=== PATIENT | female | born 1980 | race Caucasian/White ===

== ENCOUNTER 2018-02-13 13:27 | Emergency (ER) | payer MEDICAID ==
[~2018-02-13] VITALS: Ht 167.6 cm; Wt 127.9 kg
[~2018-02-13 13:27] MED LIST: DOCU100C37 PO; FOLI1TAB24 PO; HYDR-3729 PO; HYDR250V7 IM; IBUP-1780 PO; IRON1TAB95 PO; METR500T PO; OXYC-465 PO; PREN1TAB79 PO
--- NOTE | 2018-02-13 13:52 | ED GU-Female ---
General Stated Complaint: ABD PAIN/CRAMPING/16 WEEKS PG/SPOTTING Source: patient Exam Limitations: no limitations History of Present Illness Date Seen by Provider: Feb 13, 2018 Time Seen by Provider: 13:40 Initial Comments with 2 miscarriages and one set of twins presents at 15 weeks and 6 days by [facility]. Unknown LMP. 2 prior C-sections. Patient presents to ER by private conveyance with her family members and chief complaint that last night she started noticing some spotting as well as having some low abdominal cramping pain in the suprapubic region. No dysuria or discharge. She has had morning nausea throughout her and this has not changed. She denies any nausea presently. No fevers or chills, vomiting, or constipation. She however started having some loose stools yesterday. She's not had any trauma. Allergies and Home Medications Allergies Coded Allergies: latex (Verified Allergy, Unknown, 12/19/15) Swelling penicillin G (Verified Allergy, Unknown, 07/04/06) Home Medications Vit W-Ca,Fe,FA(<1 mg) 1 Each Tablet, 1 EACH PO DAILY, (Reported) Patient Home Medication List Home Medication List Reviewed: Yes Review of Systems Constitutional: No chills, No diaphoresis EENTM: No ear pain, No blurred vision Respiratory: No cough, No short of breath Cardiovascular: No chest pain, No palpitations Gastrointestinal: abdominal pain; No constipation; diarrhea, nausea; No vomiting Genitourinary: denies burning, denies discharge, denies dysuria : Yes Expected Date of Delivery: Aug 01, 2018 Past Zodtanw-Mjvtmz-Knxxoa Hx Patient Social History Alcohol Use: Denies Use Recreational Drug Use: No Smoking Status: Current Everyday Smoker Type Used: Cigarettes (09/27) Recent Foreign Travel: No Contact w/Someone Who Travel: No Immunizations Up To Date Tetanus Booster (TDap): Unknown PED Vaccines UTD: Yes Past Medical History Section Reproductive Disorders: No Female Reproductive Disorders: Denies Sexually Transmitted Disease: Yes HIV/AIDS: No Family Medical History Alcoholism grandparents Alzheimer's disease grandparents Cardiovascular disease 19 FATHER Completed stroke 19 MOTHER Diabetes mellitus 19 MOTHER grandparents Drug abuse grandparents FH: cancer grandparents (breast, bladder) Hypertension 19 FATHER 19 MOTHER grandparents Myocardial infarction 19 FATHER 19 MOTHER grandparents Physical Exam Vital Signs Vital Signs - First Documented 02/13/18 13:35 Temp 97.1 Pulse 72 Resp 18 B/P (MAP) 129/54 (79) Pulse Ox 99 Capillary Refill : Height, Weight, BMI Height: 5', 6.00" Weight: 282lbs 0.0oz, [id number] Method: ,45.5BMI General Appearance: WD/WN, no apparent distress HEENT: PERRL/EOMI, pharynx normal Neck: non-tender, full range of motion, supple, normal inspection Cardiovascular: normal peripheral pulses, regular rate, rhythm Respiratory: chest non-tender, lungs clear, normal breath sounds, no respiratory distress, no accessory muscle use Gastrointestinal: normal bowel sounds, soft, no organomegaly, other (mild tenderness in the right lower quadrant, left lower quadrant and suprapubic region. Gravid approximately 16 cm fundal height.) Extremities: no pedal edema, normal capillary refill Neurologic/Psychiatric: alert, normal mood/affect, oriented x 3 Skin: normal color, warm/dry Progress/Results/Core Measures Suspected Sepsis SIRS Temperature: Pulse: Respiratory Rate: Laboratory Tests 02/13/18 14:13: White Blood Count 8.7 Blood Pressure / Mean: Laboratory Tests 02/13/18 14:13: Creatinine 0.65, Platelet Count 306, Total Bilirubin 0.2 Results/Orders Lab Results Laboratory Tests Test 02/13/18 14:13 02/13/18 14:40 Range/Units White Blood Count 8.7 4.3-11.0 10^3/uL Red Blood Count 3.87 L 4.35-5.85 10^6/uL Hemoglobin 11.4 L 11.5-16.0 G/DL Hematocrit 33 L 35-52 % Mean Corpuscular Volume 86 80-99 FL Mean Corpuscular Hemoglobin 29 25-34 PG Mean Corpuscular Hemoglobin Concent 34 32-36 G/DL Red Cell Distribution Width 14.1 10.0-14.5 % Platelet Count 306 130-400 10^3/uL Mean Platelet Volume 9.3 7.4-10.4 FL Neutrophils (%) (Auto) 68 42-75 % Lymphocytes (%) (Auto) 26 12-44 % Monocytes (%) (Auto) 5 0-12 % Eosinophils (%) (Auto) 1 0-10 % Basophils (%) (Auto) 0 0-10 % Neutrophils # (Auto) 5.9 1.8-7.8 X 10^3 Lymphocytes # (Auto) 2.3 1.0-4.0 X 10^3 Monocytes # (Auto) 0.4 0.0-1.0 X 10^3 Eosinophils # (Auto) 0.1 0.0-0.3 10^3/uL Basophils # (Auto) 0.0 0.0-0.1 10^3/uL Sodium Level 137 135-145 MMOL/L Potassium Level 3.7 3.6-5.0 MMOL/L Chloride Level 108 H 98-107 MMOL/L Carbon Dioxide Level 21 21-32 MMOL/L Anion Gap 8 5-14 MMOL/L Blood Urea Nitrogen 7 7-18 MG/DL Creatinine 0.65 0.60-1.30 MG/DL Estimat Glomerular Filtration Rate > 60 BUN/Creatinine Ratio 11 Glucose Level 94 70-105 MG/DL Calcium Level 9.1 8.5-10.1 MG/DL Total Bilirubin 0.2 0.1-1.0 MG/DL Aspartate Amino Transf (AST/SGOT) 12 5-34 U/L Alanine Aminotransferase (ALT/SGPT) 15 0-55 U/L Alkaline Phosphatase 48 40-136 U/L Total Protein 6.8 6.4-8.2 GM/DL Albumin 3.7 3.2-4.5 GM/DL Human Chorionic Gonadotropin, Quant [id number] H <5 MIU/ML Urine Color YELLOW Urine Clarity CLEAR Urine pH 6 5-9 Urine Specific Stephens 1.020 1.016-1.022 Urine Protein 1+ H NEGATIVE Urine Glucose (UA) NEGATIVE NEGATIVE Urine Ketones NEGATIVE NEGATIVE Urine Nitrite NEGATIVE NEGATIVE Urine Bilirubin NEGATIVE NEGATIVE Urine Urobilinogen NORMAL NORMAL MG/DL Urine Leukocyte Esterase 3+ H NEGATIVE Urine RBC (Auto) 1+ H NEGATIVE Urine RBC 0-2 /HPF Urine WBC 2-5 /HPF Urine Squamous Epithelial Cells 0-2 /HPF Urine Crystals NONE /LPF Urine Bacteria FEW H /HPF Urine Casts NONE /LPF Urine Mucus NEGATIVE /LPF Urine Culture Indicated NO Urine Opiates Screen NEGATIVE NEGATIVE Urine Oxycodone Screen NEGATIVE NEGATIVE Urine Methadone Screen NEGATIVE NEGATIVE Urine Propoxyphene Screen NEGATIVE NEGATIVE Urine Barbiturates Screen NEGATIVE NEGATIVE Ur Tricyclic Antidepressants Screen NEGATIVE NEGATIVE Urine Phencyclidine Screen NEGATIVE NEGATIVE Urine Amphetamines Screen NEGATIVE NEGATIVE Urine Methamphetamines Screen NEGATIVE NEGATIVE Urine Benzodiazepines Screen NEGATIVE NEGATIVE Urine Cocaine Screen NEGATIVE NEGATIVE Urine Cannabinoids Screen POSITIVE H NEGATIVE My Orders Orders - FABI MAYA Heart Tones (02/13/18 13:44) Cbc With Automated Diff (02/13/18 13:44) Comprehensive Metabolic Panel (02/13/18 13:44) Drug Screen Stat (Urine) (02/13/18 13:44) Hcg,Quantitative (02/13/18 13:44) Ua Culture If Indicated (02/13/18 13:44) [place] Limited [id number] (02/13/18 13:44) Vital Signs/I&O 02/13/18 13:35 Temp 97.1 Pulse 72 Resp 18 B/P (MAP) 129/54 (79) Pulse Ox 99 Capillary Refill : Progress Note : Time: 13:53 Progress Note Patient's having some bleeding in second trimester. We'll going to obtain an ultrasound looking for abruption etc. Attempt to get heart tones. We will get some basic labs and a qualitative hCG. 1500: 149 Diagnostic Imaging Diagonstic Imaging: Ultrasound Plain Films/CT/US/NM/MRI: abdomen (TV US) Comments VIA [facility]. [place], [place] NAME: ZAK DREW [facility] REC#: [id number] PT STATUS: REG ER : 1980 PHYSICIAN: FABI MAYA MD ADMIT DATE: 02/13/18/ER Draft Date of Exam:02/13/18 [place] LIMITED [id number] INDICATION: Pelvic cramping and spotting. FINDINGS: There is a single live intrauterine . Fetus is in a transverse presentation. Placenta appears to be developing anteriorly. heart rate is recorded at 149 beats per minute. No definite retroplacental fluid collection or evidence of abruption is seen. IMPRESSION: Limited obstetrical ultrasound. No complicating feature is detected. Dictated on workstation # [id number] Dict: 02/13/18 1515 Trans: 02/13/18 1521 [facility] [id number] Interpreted by: CHEYENNE WHITLOCK MD Electronically signed by: Reviewed: Reviewed by Me Departure Impression Primary Impression: Spotting affecting in second trimester Additional Impression: Threatened in second trimester Disposition: 01 HOME, SELF-CARE Condition: Stable Departure-Patient Inst. Decision time for Depature: 15:40 Referrals: FREDDY MCLEOD DO (PCP/Family) Primary Care Physician Patient Instructions: Threatened Miscarriage (DC) Add. 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 Work/School Note: Work Release Form Date Seen in the Emergency Department: Feb 13, 2018 Return to Work: Feb 14, 2018 Restrictions: No Restrictions Copy Copies To 1: FREDDY MCLEOD TITUS J Feb 13, 2018 13:52
[2018-02-13 14:40] LABS: BASOPHILS % (AUTO) 0 % (0-10); EOSINOPHILS # (AUTO) 0.1 10^3/uL (0.0-0.3); EOSINOPHILS % (AUTO) 1 % (0-10); HEMATOCRIT 33 % (35-52); HEMOGLOBIN 11.4 G/DL (11.5-16.0); LYMPHOCYTES # (AUTO) 2.3 X 10^3 (1.0-4.0); LYMPHOCYTES % (AUTO) 26 % (12-44); MEAN CORPUSCULAR HEMOGLOBIN 29 PG (25-34); MEAN CORPUSCULAR HGB CONC 34 G/DL (32-36); MEAN CORPUSCULAR VOLUME 86 FL (80-99); MEAN PLATELET VOLUME 9.3 FL (7.4-10.4); MONOCYTES # (AUTO) 0.4 X 10^3 (0.0-1.0); MONOCYTES % (AUTO) 5 % (0-12); NEUTROPHILS # (AUTO) 5.9 X 10^3 (1.8-7.8); NEUTROPHILS % (AUTO) 68 % (42-75); PLATELET COUNT 306 10^3/uL (130-400); RED BLOOD COUNT 3.87 10^6/uL (4.35-5.85); RED CELL DISTRIBUTION WIDTH 14.1 % (10.0-14.5); WHITE BLOOD COUNT 8.7 10^3/uL (4.3-11.0)
[2018-02-13 14:49] LABS: BILIRUBIN,URINE NEGATIVE (NEGATIVE); CLARITY,URINE CLEAR; COLOR,URINE YELLOW; GLUCOSE, URINE (UA) NEGATIVE (NEGATIVE); KETONES,URINE NEGATIVE (NEGATIVE); LEUKOCYTE ESTERASE ,URINE 3+ (NEGATIVE); NITRITE,URINE NEGATIVE (NEGATIVE); PH,URINE 6 (5-9); PROTEIN,URINE 1+ (NEGATIVE); UROBILINOGEN,URINE NORMAL (NORMAL)
[2018-02-13 14:57] LABS: BACTERIA,URINE FEW /HPF; RBC,URINE 0-2 /HPF; SQUAMOUS EPITHELIAL CELL,UR 0-2 /HPF
[2018-02-13 14:58] LABS: ALANINE AMINOTRANSFERASE 15 U/L (0-55); ALBUMIN 3.7 GM/DL (3.2-4.5); ALKALINE PHOSPHATASE 48 U/L (40-136); BILIRUBIN,TOTAL 0.2 MG/DL (0.1-1.0); BUN/CREATININE RATIO 11; CALCIUM 9.1 MG/DL (8.5-10.1); CARBON DIOXIDE 21 MMOL/L (21-32); CHLORIDE 108 MMOL/L (98-107); CREATININE SERUM 0.65 MG/DL (0.60-1.30); GFR ESTIMATED > 60; GLUCOSE 94 MG/DL (70-105); POTASSIUM 3.7 MMOL/L (3.6-5.0); SODIUM 137 MMOL/L (135-145); TOTAL PROTEIN 6.8 GM/DL (6.4-8.2)
[2018-02-13 15:02] LABS: AMPHETAMINE SCREEN, URINE NEGATIVE (NEGATIVE); BARBITURATE SCREEN URINE NEGATIVE (NEGATIVE); BENZODIAZEPINES SCREEN URINE NEGATIVE (NEGATIVE); CANNABINOID SCREEN, URINE POSITIVE (NEGATIVE); COCAINE SCREEN URINE NEGATIVE (NEGATIVE); METHADONE STAT NEGATIVE (NEGATIVE); METHAMPHETAMINE SCREEN URINE S NEGATIVE (NEGATIVE); OPIATE SCREEN URINE NEGATIVE (NEGATIVE); OXYCODONE STAT NEGATIVE (NEGATIVE); PROPOXYPHENE STAT NEGATIVE (NEGATIVE); TRICYCLIC ANTIDEPRESSANTS SCRE NEGATIVE (NEGATIVE)
--- NOTE | 2018-02-13 15:21 | Diagnostic Imaging Report ---
INDICATION: Pelvic cramping and spotting. FINDINGS: There is a single live intrauterine . Fetus is in a transverse presentation. Placenta appears to be developing anteriorly. heart rate is recorded at 149 beats per minute. No definite retroplacental fluid collection or evidence of abruption is seen. IMPRESSION: Limited obstetrical ultrasound. No complicating feature is detected. Dictated by: Dictated on workstation # [id number]
[2018-02-13 15:56] VITALS: BP 129/54
== END 2018-02-13 15:50 | disposition home or self-care (01) ==
LOC: EDUNIT# 13:27 → ER 13:29
DX: O20.0 Threatened abortion (principal); O26.852 Spotting complicating pregnancy, second trimester; Z3A.15 15 weeks gestation of pregnancy; Z91.040 Latex allergy status; Z88.0 Allergy status to penicillin; O99.332 Smoking (tobacco) complicating pregnancy, second trimester; F17.210 Nicotine dependence, cigarettes, uncomplicated; Z87.59 Personal history of other complications of pregnancy, childbirth and the puerperium
CPT/HCPCS: 36415; 76815; 80053; 80306; 81000; 84702; 85025

== ENCOUNTER → 2018-03-20 | Outpatient (CLI) | payer MEDICAID ==
--- NOTE | 2018-03-20 14:50 | Diagnostic Imaging Report ---
INDICATION: survey. TECHNIQUE: Multiple real-time grayscale images were obtained over the gravid uterus. COMPARISON: 02/13/2018. FINDINGS: There is a single live fetus in a breech presentation. heart rate was recorded at 153 beats per minute. Amniotic fluid volume is within normal limits. survey demonstrates kidneys, bladder and stomach to be unremarkable. brain is limited in evaluation due to position. Four-chamber heart view is not well visualized. In addition, spine and cord insertion were not well visualized. There is a three-vessel cord noted. Biometrical measurements are as follows: Biparietal 5.09 cm, age 21 weeks 3 days. Head circumference 18.59 cm, age 21 weeks 0 days. Abdominal circumference 14.62 cm, age 20 weeks 0 days. Femur length 3.34 cm, age 20 weeks 4 days. Sonographic estimate age: 20 weeks 6 days. Sonographic estimated date of delivery: 08/01/2018. Estimated Weight: 344 gm (+/- 50 gm). LMP percentile: 18%. heart rate: 153 beats per minute. number: 1 of 1. IMPRESSION: Single live IUP 20 weeks 6 days gestational age with estimated date of confinement sonographically of 08/01/2018. No complicating features are seen. The survey is somewhat limited, described above and followup could be performed. Dictated by: Dictated on workstation # [id number]
== END ==
LOC: RAD 13:13
PROVIDERS: ATTEND Obstetrics & Gynecology
DX: Z36.89 Encounter for other specified antenatal screening (principal); Z3A.20 20 weeks gestation of pregnancy
CPT/HCPCS: 76805

== ENCOUNTER 2018-07-20 13:38 | Outpatient (CLI) | payer MEDICAID ==
[~2018-07-20] VITALS: Ht 167.6 cm; Wt 132.9 kg
== END 2018-07-20 14:00 | disposition home or self-care (01) ==
LOC: PREOP 13:38
PROVIDERS: ATTEND Obstetrics & Gynecology
DX: Z01.818 Encounter for other preprocedural examination (principal)
CPT/HCPCS: 87081

== ENCOUNTER 2018-07-25 07:30 | Inpatient (IN) | payer MEDICAID ==
[~2018-07-25] VITALS: Ht 167.6 cm; Wt 132.0 kg
[2018-07-25 10:24] VITALS: BP 137/67
[2018-07-25] MEDS ORDERED: FAMOTIDINE 20MG/2ML IV (PEPCID) IV ONE (10:30)
[2018-07-25] MEDS ORDERED: CITRIC ACID/SOB CIT (BICITRA) 30 ML UDC PO ONE (10:30)
[2018-07-25] MEDS ORDERED: ceFAZolin 2 GM IV Premixed 50 ML IV ONE (10:30)
[2018-07-25] MEDS ORDERED: METOCLOPRAMIDE INJ 10 MG/2 ML (REGLAN) IV ONE (10:30)
[2018-07-25] MEDS: LACTATED RINGERS 1,000 ML IV SCH ×2 (10:45→12:00)
[2018-07-25 11:13] LABS: BASOPHILS % (AUTO) 0 % (0-10); EOSINOPHILS # (AUTO) 0.1 10^3/uL (0.0-0.3); EOSINOPHILS % (AUTO) 1 % (0-10); HEMATOCRIT 33 % (35-52); HEMOGLOBIN 10.9 G/DL (11.5-16.0); LYMPHOCYTES # (AUTO) 1.8 X 10^3 (1.0-4.0); LYMPHOCYTES % (AUTO) 24 % (12-44); MEAN CORPUSCULAR HEMOGLOBIN 29 PG (25-34); MEAN CORPUSCULAR HGB CONC 33 G/DL (32-36); MEAN CORPUSCULAR VOLUME 88 FL (80-99); MONOCYTES # (AUTO) 0.4 X 10^3 (0.0-1.0); MONOCYTES % (AUTO) 5 % (0-12); NEUTROPHILS # (AUTO) 5.5 X 10^3 (1.8-7.8); NEUTROPHILS % (AUTO) 70 % (42-75); PLATELET COUNT 345 10^3/uL (130-400); RED BLOOD COUNT 3.74 10^6/uL (4.35-5.85); RED CELL DISTRIBUTION WIDTH 14.1 % (10.0-14.5); WHITE BLOOD COUNT 7.8 10^3/uL (4.3-11.0)
[2018-07-25 11:17] VITALS: BP 140/72
--- NOTE | 2018-07-25 11:33 | History & Physical-OB ---
OB - Chief Complaint & HPI Date/Time Date of Admission: Date of Admission: Jul 25, 2018 at 10:14 am Date seen by a Provider: Jul 25, 2018 Time Seen by a Provider: 12:05 Chief Complaint/History Hx : 5 Hx Para: 3 Expected Date of Delivery: Aug 01, 2018 Gestational Age in Weeks: 39 Gestational Age in Days: 0 Indication for : desires repeat Admission Nurse Assessment Rev: Yes History of Labs A pos Antibody neg RNI RPR NR HBsAg NR HIV NR GC neg GBS pos Allergies and Home Medications Allergies Coded Allergies: latex (Verified Allergy, Unknown, 12/19/15) Swelling penicillin G (Verified Allergy, Unknown, Pt has received Ancef w/o issue, 07/25/18) Home Medications Vit W-Ca,Fe,FA(<1 mg) 1 Each Tablet, 1 EACH PO DAILY, (Reported) Patient Home Medication List Home Medication List Reviewed: Yes OB - History Hx of Present Care: Yes Ultrasounds: Normal mid trimester US Obstetrical Complications: None Medical Complications: None Obstetrical History Hx Termination: Yes Hx Multiple Gestation: Yes Hx Stillbirth: Yes Hx Complication: No Hx Induced Hypertens: No Hx Maternal Gestational Diabet: No Delivery History Hx Dystocia: No Hx Large For Gestational Age I: No Hx Small for Gestational Age I: No Hx Section: Yes Hx Vaginal Delivery Post C-Sec: No Hx Blood Disorders: No Adverse Rxn to Tranfusion: No Patient Past Medical History n/a Social History/Family History HIV/AIDS: No Recent Infectious Disease Expo: No Sexually Transmitted Disease: Yes Alcohol Use: Denies Use Recreational Drug Use: No Immunizations Hepatitis A: No Hepatitis B: No Tetanus Booster (TDap): Unknown Date of Influenza Vaccine: Apr 20, 2018 OB - Admission Exam Physical Exam Vitals: Vital Signs 07/25/18 07/25/18 10:24 11:17 Temp 97.7 Pulse 85 Resp 18 B/P (MAP) 140/72 (94) Pulse Ox 98 O2 Delivery Room Air HEENT: NCAT Heart: Rhythm Normal Lungs: Clear Abdomen: Gravid Extremities: Normal Reflexes: Normal Heart Rate: 130's Accelerations: Accelerations Present Decelerations: No Decelerations Short Term Variability: Present Longterm Variability: Average (6-25) Contractions on Admission: >10 Minutes Apart Intensity: Mild Labs Laboratory Tests Test 07/25/18 10:55 Range/Units White Blood Count 7.8 4.3-11.0 10^3/uL Red Blood Count 3.74 L 4.35-5.85 10^6/uL Hemoglobin 10.9 L 11.5-16.0 G/DL Hematocrit 33 L 35-52 % Mean Corpuscular Volume 88 80-99 FL Mean Corpuscular Hemoglobin 29 25-34 PG Mean Corpuscular Hemoglobin Concent 33 32-36 G/DL Red Cell Distribution Width 14.1 10.0-14.5 % Platelet Count 345 130-400 10^3/uL Mean Platelet Volume 9.0 7.4-10.4 FL Neutrophils (%) (Auto) 70 42-75 % Lymphocytes (%) (Auto) 24 12-44 % Monocytes (%) (Auto) 5 0-12 % Eosinophils (%) (Auto) 1 0-10 % Basophils (%) (Auto) 0 0-10 % Neutrophils # (Auto) 5.5 1.8-7.8 X 10^3 Lymphocytes # (Auto) 1.8 1.0-4.0 X 10^3 Monocytes # (Auto) 0.4 0.0-1.0 X 10^3 Eosinophils # (Auto) 0.1 0.0-0.3 10^3/uL Basophils # (Auto) 0.0 0.0-0.1 10^3/uL OB - Assessment/Plan/Diagnosis Assessment Assessment: section Admission Dx 37 yo @ 39 weeks Previous GBS pos Admission Status: Inpatient Order (span 2 midnights) Reason for Inpatient Admission: Repeat Plan Plan: Section FREDDY MCLEOD DO Jul 25, 2018 11:33 am
[2018-07-25] MEDS ORDERED: fentaNYL INJECTION 100 MCG/2 ML AMP ONE (11:45)
[2018-07-25] MEDS ORDERED: BUPIVACAINE SPINAL 0.75% (SENSORCAINE) 2 ML AMP ONE (11:45)
[2018-07-25] MEDS ORDERED: ONDANSETRON 4 MG/2 ML (SDV) Z0FRAN ONE (12:41)
[2018-07-25] MEDS ORDERED: NEO/POLY/BAC (NEOSPORIN) OINT 15 GM TUBE ONE (13:00)
[2018-07-25] MEDS ORDERED: OXYTOCIN/NORMAL SALINE 500 ML IV SCH (13:07)
--- NOTE | 2018-07-25 13:10 | Discharge Inst-Women's Service ---
Discharge Inst-Women's Serv Depart Medication/Instructions New, Converted or Re-Newed RX: RX on Chart Consults/Follow Up Additional Follow Up: Yes Orders/Referrals Dr. Gerard in 7-10 days and in 6 weeks Activity Activity: Activity as Tolerated Driving Instructions: No Driving for 1 Week NO SMOKING: NO SMOKING Nothing Inside Vagina: No Douching, No [place], No Tampons Diet Discharge Diet: No Restrictions Symptoms to Report to : Bleeding Excessive, Pain Increased, Fever Over 101 Degrees F, Vaginal Bleeding Increase, Questions/Concerns For Any Problems or Questions: Contact Your Physician Skin/Wound Care Infection Signs and Symptoms: Increased Redness, Foul Odor of Wound, Increased Drainage, Skin Itchy or Has a Rash, Increased Swelling, Temperature Above 101 F Operative Area Clean and Dry: Keep Incision Clean/Dry Stitches/Claudia/Dermabond: Dermabond, Care of Stitches Bathing Instructions: FREDDY Shukla DO Jul 25, 2018 1:10 pm
[2018-07-25] MEDS ORDERED: MEASLES,MUMPS,RUBELLA 1 EA INJ SC SCH (13:15)
[2018-07-25] MEDS ORDERED: ONDANSETRON 4 MG/2 ML (SDV) Z0FRAN IVP PRN (13:15)
[2018-07-25] MEDS ORDERED: HYDROmorphone 2 MG/ML VIAL (DILAUDID) IV PRN (13:15)
[2018-07-25] MEDS ORDERED: TETANUS,DIPTH,PERTUSS P/F (BOOSTRIX) 0.5 ML VIAL IM SCH (13:15)
[2018-07-25 15:00] VITALS: BP 100/66
[2018-07-25 16:30] VITALS: BP 123/73
[2018-07-25] MEDS: KETOROLAC 30 MG/ML VIAL IVP SCH ×2 (16:33→21:58)
[2018-07-25] MEDS: HYDROcodone/APAP 5 MG/325 MG (LORTAB) TAB PO PRN (16:43)
[2018-07-25 20:00] VITALS: BP 123/64
[2018-07-25] MEDS: DOCUSATE SODIUM 100 MG (COLACE) CAP PO SCH (21:59)
[2018-07-26 00:07] VITALS: BP 116/65
[2018-07-26] MEDS: HYDROcodone/APAP 5 MG/325 MG (LORTAB) TAB PO PRN ×4 (00:07→22:02)
[2018-07-26 04:00] VITALS: BP 119/72
[2018-07-26] MEDS: KETOROLAC 30 MG/ML VIAL IVP SCH ×2 (04:00→09:51)
[2018-07-26 05:39] LABS: BASOPHILS % (AUTO) 0 % (0-10); EOSINOPHILS # (AUTO) 0.1 10^3/uL (0.0-0.3); EOSINOPHILS % (AUTO) 1 % (0-10); HEMATOCRIT 30 % (35-52); HEMOGLOBIN 9.8 G/DL (11.5-16.0); LYMPHOCYTES # (AUTO) 2.2 X 10^3 (1.0-4.0); LYMPHOCYTES % (AUTO) 21 % (12-44); MEAN CORPUSCULAR HEMOGLOBIN 30 PG (25-34); MEAN CORPUSCULAR HGB CONC 33 G/DL (32-36); MEAN CORPUSCULAR VOLUME 90 FL (80-99); MEAN PLATELET VOLUME 9.1 FL (7.4-10.4); MONOCYTES # (AUTO) 0.7 X 10^3 (0.0-1.0); MONOCYTES % (AUTO) 6 % (0-12); NEUTROPHILS # (AUTO) 7.8 X 10^3 (1.8-7.8); NEUTROPHILS % (AUTO) 72 % (42-75); PLATELET COUNT 295 10^3/uL (130-400); RED BLOOD COUNT 3.32 10^6/uL (4.35-5.85); RED CELL DISTRIBUTION WIDTH 13.9 % (10.0-14.5); WHITE BLOOD COUNT 10.8 10^3/uL (4.3-11.0)
[2018-07-26] MEDS ORDERED: ACHD5005 PO (08:33)
[2018-07-26] MEDS ORDERED: DOCU100C37 PO (08:33)
[2018-07-26] MEDS ORDERED: IBUP-844 PO (08:33)
[2018-07-26 09:45] VITALS: BP 117/73
[2018-07-26] MEDS: DOCUSATE SODIUM 100 MG (COLACE) CAP PO SCH ×2 (09:52→22:03)
--- NOTE | 2018-07-26 09:56 | OPERATIVE REPORT ---
DATE OF SERVICE: PREOPERATIVE DIAGNOSES: 1. A 37-year-old G5, P3 at 39 weeks gestation. 2. Previous section x 2. 3. Family history of ovarian cancer. 4. BMI greater than 40. POSTOPERATIVE DIAGNOSES: 1. A 37-year-old G5, P3 at 39 weeks gestation. 2. Previous section x 2. 3. Family history of ovarian cancer. 4. BMI greater than 40. PROCEDURE PERFORMED: Repeat low transverse section with bilateral risk reducing salpingectomy. SURGEON: Josiah Mcleod DO. ANESTHESIA: Spinal. ESTIMATED BLOOD LOSS: 300 mL. URINE OUTPUT: 300 mL clear at the end of the procedure. FLUIDS: 1200 mL Lactated ringer solution. FINDINGS: A live female infant weighing 7 pounds 3 ounces, Apgars 9 and 9. Grossly normal appearing uterus, bilateral fallopian tubes and ovaries with extensive adhesions of the pelvic peritoneum as well as adhesions of the fascia to the rectus muscle. SPECIMEN SENT: Placenta. INDICATIONS FOR PROCEDURE: This 37-year-old female is a patient that had sought care in my office and had really no complications throughout the other than extensive weight gain, which was counseled extensively on diet. The patient progressed throughout the without difficulty. Otherwise, we discussed risk reducing salpingectomy as the patient finished with her family and done with childbearing and has a family history of ovarian malignancy. Risk of was again reviewed with the patient, which she was familiar with from previous surgeries. All of her questions were answered. We discussed the salpingectomy and no further childbearing without fertility intervention would be possible in the future and the patient understands this as well. Consent was obtained in the preoperative area. The patient was taken to the operating room. OPERATIVE REPORT IN DETAIL: Once in the operating room, spinal anesthesia was found to be adequate. She was placed in a supine position with a leftward tilt, prepped and draped in normal sterile fashion. A timeout was performed and anesthesia was tested. I then proceeded to make a Pfannenstiel skin incision through the previously existing scar using a knife and carried it down to the underlying fascia using Bovie cautery. Fascial incision was extended laterally using Bovie cautery. The superior aspect of the fascial incision was then grasped with Rafa clamps, tented up and dissected off the underlying rectus muscle. The inferior edge of the fascial incision was then grasped with Rafa clamps, tented up and dissected off the underlying rectus muscles. The rectus muscle was then dissected down the midline using Metzenbaum scissors as well as the peritoneum, which was taken down in separate layers using Metzenbaum scissors. Care was taken to stay away from the bladder due to the dense adhesions from previous surgery. I then placed an Eleno ring retractor, went into the peritoneal incision, which offered excellent lateral sidewall retraction. I then proceeded with making a low transverse incision to the vesicouterine peritoneum of the lower uterine segment and bluntly dissecting this off of the lower uterine segment, creating a bladder flap. I then proceeded with my myotomy until membranes are visualized, at which point I extended the uterine incision laterally and superiorly using bandage scissors. Clear fluid was noted at the time of rupture. The was found in the vertex presentation. With gentle fundal pressure, 's head was elevated up to the incision and delivered through the incision where the nares and oropharynx were then bulb suctioned. Anterior and posterior shoulders were delivered. The was then brought to the operative field with the cords doubly clamped and cut and was handed off to waiting nurses in attendance. Cord blood was collected. Three-vessel cord was intact. Placenta was delivered spontaneously thereafter. IV Pitocin was initiated facilitate uterine contraction. Uterine fundus became firmer with bimanual massage. The uterus was then exteriorized and cleared of all endometrial clots and debris. I then proceeded with closing the uterine incision using 0 Vicryl suture in a running locked fashion. A second layer of imbricating 0 Monocryl was placed. Excellent hemostasis was noted after doing this. I then placed the uterus in a flexion position allowing me to address the fallopian tubes, which I performed the following dissection bilaterally using a LigaSure device. Starting at the proximal isthmic portion, I bipolar cauterized and transected using the LigaSure to take this down the mesosalpinx to its distal ampullary connection spot amputating the fallopian tube from its connection and blood supply. Once this was done bilaterally, there was no active bleeding noted from any of my dissection planes. I placed the uterus back within the pelvis and copiously irrigated the pelvis using normal saline. There was no active bleeding noted from any of my dissection planes. We then placed Interceed antiadhesive over my low transverse incision and also placed a run of Surgicel along the margin of the lower uterine segment due to small amount of oozing that was noted likely from previous scar tissue being taken down. I then take the Eleno ring retractor out of the peritoneal incision and closed the rectus muscles using 3-0 Vicryl suture in an interrupted fashion. The fascia was reapproximated using 0 Vicryl suture in a running fashion. Subcutaneous tissue was reapproximated using 3-0 plain in an interrupted subcutaneous stitch and the skin was reapproximated using 4-0 Monocryl running subcuticular. Dermabond was applied to the incision. A sterile dressing was adhesed with white tape. The patient tolerated the procedure well and was taken to the recovery area in stable condition with Barone catheter still in place. Lap and sponge counts were correct at the end of the procedure. Instrument counts correct as well. Two grams of Ancef was preoperatively for infection prophylaxis. Job ID: [id number] DocumentID: [id number] Dictated Date: 07/25/2018 13:47:42 Interventional Neuroradiologist Date: 07/26/2018 09:55:59 Dictated By: JOSIAH MCLEOD DO
--- NOTE | 2018-07-26 12:37 | Postpartum Progress Note ---
Note Note Day # 1 Subjective: Patient is without complaints. Ambulating, voiding. Tolerating a regular diet without nausea or vomiting. Normal lochia. Pain is well controlled with oral pain medications. Objective: Vital Sign - Last 24 Hours 07/25/18 07/25/18 07/25/18 07/26/18 15:00 16:30 20:00 00:07 Temp 97.9 98.1 97.7 97.7 Pulse 60 77 81 71 Resp 18 18 18 18 B/P (MAP) 100/66 (77) 123/73 (90) 123/64 (83) 116/65 (82) Pulse Ox 96 98 97 97 O2 Delivery Room Air Room Air Room Air Room Air 07/26/18 07/26/18 04:00 09:45 Temp 97.6 97.5 Pulse 74 66 Resp 18 18 B/P (MAP) 119/72 (88) 117/73 (88) Pulse Ox 98 98 O2 Delivery Room Air Room Air Intake and Output 07/25/18 07/25/18 07/26/18 15:00 23:00 07:00 Intake Total 1050 ml 2740 ml 600 ml Output Total 600 ml 300 ml 375 ml Balance 450 ml 2440 ml 225 ml Physical Exam: General - Alert and oriented, no apparent distress Abdomen - Soft, appropriately tender to palpation, non-distended, fundus firm at umbilicus Extremities - no edema, negative Aaron's bilaterally Incision- c/d/i Assessment: POD 1 RLTCS/ rrs Acute blood loss anemia Plan: Routine care. Encourage breast feeding. Encourage ambulation. Ferrous sulfate supplementation. Plan for discharge tomorrow Vitals - Labs Vital Signs - I&O Vital Signs Date Time Temp Pulse Resp B/P (MAP) Pulse Ox O2 Delivery O2 Flow Rate FiO2 07/26/18 09:45 97.5 66 18 117/73 (88) 98 Room Air 07/26/18 04:00 97.6 74 18 119/72 (88) 98 Room Air 07/26/18 00:07 97.7 71 18 116/65 (82) 97 Room Air 07/25/18 20:00 97.7 81 18 123/64 (83) 97 Room Air 07/25/18 16:30 98.1 77 18 123/73 (90) 98 Room Air 07/25/18 15:00 97.9 60 18 100/66 (77) 96 Room Air I & O 07/26/18 07:00 Intake Total 4390 ml Output Total 1275 ml Balance 3115 ml Labs Laboratory Tests 07/26/18 05:20: White Blood Count 10.8, Red Blood Count 3.32L, Hemoglobin 9.8L, Hematocrit 30L, Mean Corpuscular Volume 90, Mean Corpuscular Hemoglobin 30, Mean Corpuscular Hemoglobin Concent 33, Red Cell Distribution Width 13.9, Platelet Count 295, Mean Platelet Volume 9.1, Neutrophils (%) (Auto) 72, Lymphocytes (%) (Auto) 21, Monocytes (%) (Auto) 6, Eosinophils (%) (Auto) 1, Basophils (%) (Auto) 0, Neutrophils # (Auto) 7.8, Lymphocytes # (Auto) 2.2, Monocytes # (Auto) 0.7, Eosinophils # (Auto) 0.1, Basophils # (Auto) 0.0 FREDDY MCLEOD DO Jul 26, 2018 12:37 pm
[2018-07-26 12:45] VITALS: BP 123/75
[2018-07-26 16:39] VITALS: BP 109/68
[2018-07-26] MEDS: IBUPROFEN 600 MG (MOTRIN) TAB PO SCH ×2 (16:42→22:03)
[2018-07-26 22:00] VITALS: BP 114/76
[2018-07-27] MEDS: HYDROcodone/APAP 5 MG/325 MG (LORTAB) TAB PO PRN ×3 (03:07→16:07)
[2018-07-27 04:00] VITALS: BP 138/77
[2018-07-27] MEDS: IBUPROFEN 600 MG (MOTRIN) TAB PO SCH ×3 (04:03→14:03)
[2018-07-27 08:14] VITALS: BP 125/60
[2018-07-27] MEDS: DOCUSATE SODIUM 100 MG (COLACE) CAP PO SCH (08:18)
--- NOTE | 2018-07-27 08:24 | Postpartum Progress Note ---
Note Note Day # 2 Subjective: Patient is without complaints. Ambulating, voiding. Tolerating a regular diet without nausea or vomiting. Normal lochia. Pain is well controlled with oral pain medications. [ Objective: Vital Sign - Last 24 Hours 07/26/18 07/26/18 07/26/18 07/26/18 09:45 12:45 16:39 22:00 Temp 97.5 97.6 97.5 97.6 Pulse 66 85 84 96 Resp 18 18 18 18 B/P (MAP) 117/73 (88) 123/75 (91) 109/68 (82) 114/76 (89) Pulse Ox 98 98 97 97 O2 Delivery Room Air Room Air Room Air Room Air 07/27/18 04:00 Temp 97.7 Pulse 81 Resp 18 B/P (MAP) 138/77 (97) Pulse Ox 97 O2 Delivery Room Air Intake and Output 07/26/18 07/26/18 07/27/18 15:00 23:00 07:00 Intake Total 2212 ml 500 ml Output Total 1600 ml 500 ml Balance 612 ml 0 ml Physical Exam: General - Alert and oriented, no apparent distress Abdomen - Soft, appropriately tender to palpation, non-distended, fundus firm at umbilicus Extremities - no edema, negative Aaron's bilaterally Incision- c/d/i Assessment: POD 2 RLTCS w/RRS Acute blood loss anemia Plan: Routine care. Encourage breast feeding. Encourage ambulation. Ferrous sulfate supplementation. Plan for discharge today Vitals - Labs Vital Signs - I&O Vital Signs Date Time Temp Pulse Resp B/P (MAP) Pulse Ox O2 Delivery O2 Flow Rate FiO2 07/27/18 04:00 97.7 81 18 138/77 (97) 97 Room Air 07/26/18 22:00 97.6 96 18 114/76 (89) 97 Room Air 07/26/18 16:39 97.5 84 18 109/68 (82) 97 Room Air 07/26/18 12:45 97.6 85 18 123/75 (91) 98 Room Air 07/26/18 09:45 97.5 66 18 117/73 (88) 98 Room Air I & O 07/27/18 07:00 Intake Total 2712 ml Output Total 2100 ml Balance 612 ml FREDDY MCLEOD DO Jul 27, 2018 08:24
[2018-07-27] MEDS: CATHETER FLUSH 10 ML SYR IV SCH ×3 (10:10→11:09)
[2018-07-27] MEDS: LACTATED RINGERS 1,000 ML IV SCH ×2 (11:08→11:10)
[2018-07-27 15:00] VITALS: BP 134/74
--- NOTE | 2018-07-28 15:42 | Physician Query-Final Dx ---
KAI WHITLOCK 07/28/18 1542: Final Diagnosis Give Final Diagnosis Please give Final Diagnosis FREDDY MCLEOD DO 07/29/18 0947: Final Diagnosis Give Final Diagnosis POD 2 RLTCS Acute blood loss anemia KAI WHITLOCK Jul 28, 2018 15:42 FREDDY MCLEOD DO Jul 29, 2018 09:47
== END 2018-07-27 16:10 | disposition home or self-care (01) | DRG 784 ==
LOC: LDRP 10:14
PROVIDERS: ADMIT Obstetrics & Gynecology; ATTEND Obstetrics & Gynecology
PROC: 0UT70ZZ Resection of Bilateral Fallopian Tubes, Open Approach (ICD-10-PCS; 2018-07-25)
PROC: 10D00Z1 Extraction of Products of Conception, Low, Open Approach (ICD-10-PCS; principal; 2018-07-25 11:55)
DX: O34.211 Maternal care for low transverse scar from previous cesarean delivery (principal); O99.03 Anemia complicating the puerperium; D62 Acute posthemorrhagic anemia; O99.820 Streptococcus B carrier state complicating pregnancy; Z3A.39 39 weeks gestation of pregnancy; Z37.0 Single live birth; Z80.41 Family history of malignant neoplasm of ovary
CPT/HCPCS: 36415; 85025; 86850; 86900; 86901; 88302; 88307; 90471; 90707; 90715; 94664

== ENCOUNTER 2018-08-02 17:59 | Emergency (ER) | payer MEDICAID ==
[~2018-08-02] VITALS: Ht 167.6 cm; Wt 128.8 kg
[~2018-08-02 17:59] MED LIST changes: +ACHD5005 PO; +IBUP-844 PO
--- NOTE | 2018-08-02 21:50 | ED Integumentary General ---
General Chief Complaint: Skin/Wound Problems Stated Complaint: INCISION OPEN Nursing Triage Note: he fluid is pt states earlier this evening she bent over and felt a sensation in her c section incision and immediately began to bleed. pt verbalized putting pads in her underwear. pt states she has saturated the pads completely about every twenty minutes and states the fluid appears serosanguinous. Source: patient Exam Limitations: no limitations History of Present Illness Date Seen by Provider: Aug 02, 2018 Time Seen by Provider: 21:00 Allergies and Home Medications Allergies Coded Allergies: latex (Verified Allergy, Unknown, 12/19/15) Swelling penicillin G (Verified Allergy, Unknown, Pt has received Ancef w/o issue, 07/25/18) Home Medications Docusate Sodium 100 Mg Capsule, 100 MG PO BID PRN for CONSTIPATION-1ST LINE Prescribed by: FREDDY MCLEOD on 07/26/18 0833 Hydrocodone Bit/Acetaminophen 1 Tab Tab, 1 TAB PO Q4H PRN for PAIN-MODERATE Prescribed by: FREDDY MCLEOD on 07/26/18 0833 Ibuprofen 600 Mg Tablet, 600 MG PO Q6H Prescribed by: FREDDY MCLEOD on 07/26/18 0833 Vit W-Ca,Fe,FA(<1 mg) 1 Each Tablet, 1 EACH PO DAILY, (Reported) Past Wjkbgxo-Lzhcjp-Jzpnih Hx Patient Social History Alcohol Use: Denies Use Recreational Drug Use: No Smoking Status: Current Everyday Smoker Type Used: Cigarettes Former Smoker, Quit: Jan 18, 2018 Recent Foreign Travel: No Contact w/Someone Who Travel: No Recent Infectious Disease Expo: Yes Recent Hopitalizations: No Immunizations Up To Date Tetanus Booster (TDap): Unknown PED Vaccines UTD: Yes Date of Influenza Vaccine: Apr 20, 2018 Seasonal Allergies Seasonal Allergies: No Past Medical History Surgeries: Yes (c/s x2) Section Respiratory: No Cardiac: No Neurological: No : No Reproductive Disorders: No Female Reproductive Disorders: Denies 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 Sexually Transmitted Disease: Yes HIV/AIDS: No Genitourinary: No Gastrointestinal: No Musculoskeletal: No Endocrine: No HEENT: No Cancer: No Psychosocial: No Integumentary: Yes Eczema Blood Disorders: No Adverse Reaction/Blood Tranf: No Family Medical History Alcoholism grandparents Alzheimer's disease grandparents Cardiovascular disease 19 FATHER Completed stroke 19 MOTHER Diabetes mellitus 19 MOTHER grandparents Drug abuse grandparents FH: cancer grandparents (breast, bladder) Hypertension 19 FATHER 19 MOTHER grandparents Myocardial infarction 19 FATHER 19 MOTHER grandparents Ovarian cancer Physical Exam Vital Signs Vital Signs - First Documented 08/02/18 21:09 Temp 96.9 Pulse 70 Resp 22 B/P (MAP) 155/83 (107) Pulse Ox 99 O2 Delivery Room Air Capillary Refill : Less Than 3 Seconds Progress/Results/Core Measures Results/Orders Vital Signs/I&O 08/02/18 21:09 Temp 96.9 Pulse 70 Resp 22 B/P (MAP) 155/83 (107) Pulse Ox 99 O2 Delivery Room Air Blood Pressure Mean: 107 Progress Progress Note : Time: 21:15 Progress Note I have discussed the case with Dr. Parish at this time and he recommends leaving the wound open and letting a scab form. He recommends just changing the dressings when they becomes saturated. Patient agrees with plan of care, plans for discharge, return precautions were given. Departure Impression Primary Impression: Wound dehiscence, Disposition: 01 HOME, SELF-CARE Condition: Stable/Unchanged Departure-Patient Inst. Decision time for Depature: 21:49 Referrals: [facility] (PCP) Primary Care Physician Patient Instructions: Wound Dehiscence (DC) Add. Discharge Instructions: Changes the dressings and they becomes saturated. Call Dr. Mcleod's office first thing in the morning for an appointment time. Return back to the emergency room for any worsening bleeding, further opening of surgical wound, worsening symptoms, or any other concerns as needed. All discharge instructions reviewed with patient and/or family. Voiced understanding. SUSAN PAZ Aug 02, 2018 21:50
[2018-08-02 21:58] VITALS: BP 155/83
== END 2018-08-02 21:56 | disposition home or self-care (01) ==
LOC: EDUNIT# 17:59 → ER 18:00
DX: O90.0 Disruption of cesarean delivery wound (principal); Z88.0 Allergy status to penicillin; Z91.040 Latex allergy status; Z98.890 Other specified postprocedural states; Z98.51 Tubal ligation status; Z82.49 Family history of ischemic heart disease and other diseases of the circulatory system; Z80.41 Family history of malignant neoplasm of ovary; Z80.3 Family history of malignant neoplasm of breast; Z80.52 Family history of malignant neoplasm of bladder

== ENCOUNTER 2019-10-30 09:01 | Emergency (ER) | payer SELFPAY ==
[~2019-10-30] VITALS: Ht 170 cm; Wt 134.9 kg
--- NOTE | 2019-10-30 09:27 | ED EENT ---
History of Present Illness General Chief Complaint: Oral/Throat Problems Stated Complaint: SORE THROAT Nursing Triage Note: Pt c/o sore throat and congestion. Pt denies fever. Pt reports son has strep throat. Pt reports pcp has not appts. Source: patient Exam Limitations: no limitations History of Present Illness Date Seen by Provider: Oct 30, 2019 Time Seen by Provider: 09:09 Initial Comments The patient presents to ER by private conveyance with chief complaint she's had a sore throat since Tuesday, 3 days prior. She said last week her son was d iagnosed with strep throat and treated. She has held off going to the doctor because she thought it might just be allergies but has progressively gotten worse. She's had no fever. Occasional nonproductive cough. No nausea, shortness of breath or history of asthma/COPD. Allergies and Home Medications Allergies Coded Allergies: latex (Verified Allergy, Unknown, 12/19/15) Swelling penicillin G (Verified Allergy, Unknown, Pt has received Ancef w/o issue, 07/25/18) Home Medications Docusate Sodium 100 Mg Capsule, 100 MG PO BID PRN for CONSTIPATION-1ST LINE Prescribed by: FREDDY MCLEOD on 07/26/18 0833 Hydrocodone Bit/Acetaminophen 1 Tab Tab, 1 TAB PO Q4H PRN for PAIN-MODERATE Prescribed by: FREDDY MCLEOD on 07/26/18 0833 Ibuprofen 600 Mg Tablet, 600 MG PO Q6H Prescribed by: FREDDY MCLEOD on 07/26/18 0833 Vit W-Ca,Fe,FA(<1 mg) 1 Each Tablet, 1 EACH PO DAILY, (Reported) Patient Home Medication List Home Medication List Reviewed: Yes Review of Systems Review of Systems Constitutional: No chills, No fever Eyes: Denies Blindness, Denies Blurred Vision Ears: Denies Dizziness, Denies Pain Nose: denies clots; congestion Mouth: denies clots, denies pain, denies swelling Throat: pain, hoarse, painful swallowing; denies difficulty with fluids Respiratory: see HPI, cough (occ dry); No phlegm Cardiovascular: No chest pain, No edema All Other Systems Reviewed Negative Unless Noted: Yes Past Fafknms-Ceubpj-Rpztms Hx Patient Social History Alcohol Use: Denies Use Recreational Drug Use: No Smoking Status: Current Everyday Smoker Type Used: Cigarettes Former Smoker, Quit: Jan 18, 2018 2nd Hand Smoke Exposure: Yes Recent Foreign Travel: No Contact w/Someone Who Travel: No Recent Infectious Disease Expo: No Recent Hopitalizations: No Physical Abuse: No Sexual Abuse: No Mistreated: No Immunizations Up To Date Tetanus Booster (TDap): Unknown PED Vaccines UTD: Yes Date of Influenza Vaccine: Apr 20, 2018 Seasonal Allergies Seasonal Allergies: No Past Medical History Surgeries: Yes (c/s x2) Section Respiratory: No Cardiac: No Neurological: No Reproductive Disorders: No Female Reproductive Disorders: Denies [employer]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 Sexually Transmitted Disease: Yes HIV/AIDS: No Genitourinary: No Gastrointestinal: No Musculoskeletal: No Endocrine: No HEENT: No Cancer: No Psychosocial: No Integumentary: Yes Eczema Blood Disorders: No Adverse Reaction/Blood Tranf: No Family Medical History Alcoholism grandparents Alzheimer's disease grandparents Cardiovascular disease 19 FATHER Completed stroke 19 MOTHER Diabetes mellitus 19 MOTHER grandparents Drug abuse grandparents FH: cancer grandparents (breast, bladder) Hypertension 19 FATHER 19 MOTHER grandparents Myocardial infarction 19 FATHER 19 MOTHER grandparents Ovarian cancer Physical Exam Vital Signs Vital Signs - First Documented 10/30/19 09:06 Temp 35.8 Pulse 94 Resp 14 B/P (MAP) 116/81 (93) Pulse Ox 98 O2 Delivery Room Air Height, Weight, BMI Height: 5'6.00" Weight: 284lbs. 0.2oz. [id number]; 46.00 BMI Method:Stated General Appearance: WD/WN, no apparent distress Eyes: bilateral eye normal inspection, bilateral eye PERRL, bilateral eye EOMI Ears: bilateral ear auricle normal, bilateral ear canal normal, bilateral ear TM normal Nose: normal inspection; No sinus tenderness; other (kcal-xu-vlxncroo congestion with clear rhinorrhea) Mouth/Throat: No tongue swollen, No tonsillar exudate; tonsillar swelling (mild), other (Pharyngeal erythema) Neck: non-tender, full range of motion, supple, normal inspection Cardiovascular: normal peripheral pulses, regular rate, rhythm Respiratory: lungs clear, normal breath sounds, no respiratory distress, no accessory muscle use Progress/Results/Core Measures Results/Orders Lab Results Laboratory Tests Test 10/30/19 09:15 Range/Units Group A Streptococcus Screen NEGATIVE NEGATIVE My Orders Orders - FABI MAYA Rapid Strep A Screen (10/30/19 09:04) Vital Signs/I&O 10/30/19 09:06 Temp 35.8 Pulse 94 Resp 14 B/P (MAP) 116/81 (93) Pulse Ox 98 O2 Delivery Room Air Blood Pressure Mean: 93 Departure Impression Primary Impression: Nasopharyngitis acute Disposition: 01 HOME, SELF-CARE Condition: Stable Departure-Patient Inst. Decision time for Depature: 09:38 Referrals: [facility] (PCP/Family) Primary Care Physician Patient Instructions: Sore Throat, Adult (DC) Add. Discharge Instructions: Salt water gargles, teaspoon of honey, throat lozenges, Chloraseptic spray will be helpful for your symptoms. You may use decongestant such as chlorpheniramine, phenylephrine, Sudafed. Humidifiers may be helpful. Vapor rubs such as Vicks or Mentholatum can be helpful for congestion. Expect your symptoms last about 5-7 days. Return to the ER if you are Having difficulty with fluids and staying hydrated or if you have difficulty breathing. All discharge instructions reviewed with patient and/or family. Voiced understanding. FABI MAYA Oct 30, 2019 09:27
[2019-10-30 09:40] VITALS: BP 116/81
== END 2019-10-30 09:40 | disposition home or self-care (01) ==
LOC: EDUNIT# 09:01 → ER 09:03
DX: J00 Acute nasopharyngitis [common cold] (principal)
CPT/HCPCS: 87430; 99284

== ENCOUNTER 2021-08-17 08:29 | Emergency (ER) | payer SELFPAY ==
[~2021-08-17] VITALS: Ht 170 cm; Wt 133.0 kg
[~2021-08-17 08:29] MED LIST changes: -FOLI1TAB24 PO; +FOLI1TAB33 PO; -OXYC-465 PO; +OXYC-556 PO
[2021-08-17 08:40] VITALS: BP 126/103
--- NOTE | 2021-08-17 09:10 | ED Cough/URI ---
General Chief Complaint: COVID19 Suspect/Confirmed Stated Complaint: CP,HERNANDEZ,NAUSEA,DIZZINESS Nursing Triage Note: ARRIVED VIA AMB TO ROOM 09 WITH COMPLAINTS OF FATIGUE, CHILLS, HEADACHE. STATES SHE TESTED POSITIVE ON SAT. STATES SHE IS SUPPOSE TO BE GETTING A CALL FOR THE INFUSION TODAY. PT HAS NOT TAKEN ANYTHING FOR HER SYMPTOMS THIS MORNING. Source: patient Exam Limitations: no limitations History of Present Illness Date Seen by Provider: Aug 17, 2021 Time Seen by Provider: 08:52 Initial Comments Patient to the ER by private conveyance with chief complaint of continued symptoms of COVID-19, burning and tightness in her chest. No history of heart disease non-smoker not a history of COPD or asthma. She has body aches malaise nausea that is only partially treated with the 4 mg Zofran. Last dose of Zofran was 3:00 yesterday afternoon. Last dose of Tylenol was yesterday afternoon. She has not taken any NSAIDs. She is able to drink and eating some 2. No diarrhea. No history of heart disease hyperlipidemia diabetes hypertension. She did have hypertension with pregnancies but she is had her fallopian tubes removed. Allergies and Home Medications Allergies Coded Allergies: latex (Verified Allergy, Unknown, 12/19/15) Swelling penicillin G (Verified Allergy, Unknown, Pt has received Ancef w/o issue, 07/25/18) Patient Home Medication List Home Medication List Reviewed: Yes Docusate Sodium (Docusate Sodium) 100 Mg Capsule, 100 MG PO BID PRN for CONSTIP ATION-1ST LINE Prescribed by: FREDDY MCLEOD on 07/26/18 0833 Hydrocodone Bit/Acetaminophen (Lortab 5 Mg Tablet) 1 Tab Tab, 1 TAB PO Q4H PRN for PAIN-MODERATE Prescribed by: FREDDY MCLEOD on 07/26/18 0833 Ibuprofen (Ibu) 600 Mg Tablet, 600 MG PO Q6H Prescribed by: FREDDY MCLEOD on 07/26/18 0833 Ondansetron (Ondansetron Odt) 4 Mg Tab.rapdis, 4-8 MG PO Q6H PRN for NAUSEA/VOMITING Prescribed by: FABI MAYA on 08/17/21 0920 Vit W-Ca,Fe,FA(<1 mg) ( Vitamins) 1 Each Tablet, 1 EACH PO DAILY, (Reported) Entered as Reported by: FUENTES HUBBARD on 08/19/152111 [paxlovid] , 300 MG PO Prescribed by: FABI MAYA on 08/17/21 0917 Review of Systems Review of Systems Constitutional: No chills, No diaphoresis EENTM: No ear discharge, No ear pain Respiratory: cough, phlegm, short of breath; No wheezing Cardiovascular: see HPI, chest pain; No edema, No palpitations Gastrointestinal: No abdominal pain, No nausea, No vomiting Genitourinary: No discharge, No dysuria Musculoskeletal: No back pain, No joint pain All Other Systems Reviewed Negative Unless Noted: Yes Past Fzuorsw-Cqvwkv-Pzjvgw Hx Patient Social History Tobacco Use?: Yes Tobacco type used: Cigarettes Smoking Status: Current Everyday Smoker Substance use?: No Alcohol Use?: No Immunizations Up To Date Tetanus Booster (TDap): Unknown PED Vaccines UTD: Yes Seasonal Allergies Seasonal Allergies: No Past Medical History Surgeries: Yes (c/s x2) Section Respiratory: No Cardiac: No Neurological: No Reproductive Disorders: No Female Reproductive Disorders: Denies 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 Sexually Transmitted Disease: Yes HIV/AIDS: No Genitourinary: No Gastrointestinal: No Musculoskeletal: No Endocrine: No HEENT: No Cancer: No Psychosocial: No Integumentary: Yes Eczema Blood Disorders: No Adverse Reaction/Blood Tranf: No Family Medical History Alcoholism grandparents Alzheimer's disease grandparents Cardiovascular disease 19 FATHER Completed stroke 19 MOTHER Diabetes mellitus 19 MOTHER grandparents Drug abuse grandparents FH: cancer grandparents (breast, bladder) Hypertension 19 FATHER 19 MOTHER grandparents Myocardial infarction 19 FATHER 19 MOTHER grandparents Ovarian cancer Physical Exam Vital Signs - First Documented 08/17/21 08:40 Temp 35.1 Pulse 90 Resp 16 B/P (MAP) 126/103 (111) Pulse Ox 97 O2 Delivery Room Air Capillary Refill : Less Than 3 Seconds Height: 5'6.00" Weight: 284lbs. 0.2oz. 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 Oxygen saturations 98 to 99% on room air.), no accessory muscle use Cardiovascular: normal peripheral pulses, regular rate, rhythm Neurologic/Psychiatric: alert, normal mood/affect, oriented x 3 Skin: normal color, warm/dry Progress/Results/Core Measures Suspected Sepsis SIRS Temperature: Pulse: 90 Respiratory Rate: 16 Blood Pressure 126 /103 Mean: 111 Results/Orders My Orders Orders - FABI MAYA Ekg Tracing (08/17/21 08:38) Continuous Ekg Monitoring (08/17/21 08:38) Ketorolac Injection (Toradol Injection) (08/17/21 09:15) Medications Given in ED Current Medications Medications Dose Ordered Sig/Marge Route Start Time Stop Time Status Last Admin Dose Admin Ketorolac Tromethamine 60 mg ONCE ONCE IM 08/17/21 09:15 08/17/21 09:16 DC 08/17/21 09:08 60 MG Vital Signs/I&O 08/17/21 08:40 Temp 35.1 Pulse 90 Resp 16 B/P (MAP) 126/103 (111) Pulse Ox 97 O2 Delivery Room Air Capillary Refill : Less Than 3 Seconds Blood Pressure Mean: 111 Progress Note : Time: 09:08 Progress Note Toradol shot. We will have her double up Zofran. Encouraged her to follow-up with primary care for monoclonal antibodies. We will give her a prescription for paxlovid. ECG Initial ECG Impression Date: Aug 17, 2021 Initial ECG Impression Time: 08:44 Initial ECG Rate: 78 Initial ECG Rhythm: Normal Sinus Initial ECG Intervals: Normal Initial ECG Impression: Normal Comment Normal sinus rhythm without clinically relevant ST elevation or depression Departure Impression Primary Impression: COVID-19 Disposition: 01 HOME, SELF-CARE Condition: Stable Departure-Patient Inst. Decision time for Depature: 09:12 Referrals: [facility] (PCP/Family) Primary Care Physician Patient Instructions: COVID-19 Overview Add. Discharge Instructions: Drink plenty of fluids. Zofran 1 tablet every 6 hours. Take a second tablet if you not seeing some relief in 30 minutes. Phenergan 1 tablet every 6 hours as necessary for severe breakthrough nausea. Tylenol 1000 mg every 8 hours necessary for chest pain, body aches or fever. Ibuprofen 800 mg every 8 hours as necessary for chest pain, body aches or fever. All discharge instructions reviewed with patient and/or family. Voiced understanding. Scripts Promethazine HCl (Promethazine Tablet) 25 Mg Tablet 25 MG PO Q6H PRN for NAUSEA/VOMITING, #10 TAB 0 Refills Prov: FABI MAYA 08/17/21 Ondansetron (Ondansetron Odt) 4 Mg Tab.rapdis 4-8 MG PO Q6H PRN for NAUSEA/VOMITING, #20 TAB 0 Refills Prov: FABI MAYA 08/17/21 [paxlovid] No Conflict Check 300 MG PO Unit dose 300 mg once followed by 100 mg twice daily for 5 days Prov: FABI MAYA 08/17/21 FABI MAYA Aug 17, 2021 09:10
[2021-08-17] MEDS ORDERED: KETOROLAC 60 MG/2 ML VIAL IM ONE (09:15)
[2021-08-17] MEDS ORDERED: paxlovid PO (09:17)
[2021-08-17] MEDS ORDERED: ONDA4TAB11 PO (09:20)
[2021-08-17] MEDS ORDERED: PROM25TA14 PO (10:17)
== END 2021-08-17 09:30 | disposition home or self-care (01) ==
LOC: EDUNIT# 08:29 → ER 08:31
DX: U07.1 COVID-19 (principal); F17.210 Nicotine dependence, cigarettes, uncomplicated; Z91.040 Latex allergy status
CPT/HCPCS: 93005; 96372

== ENCOUNTER 2022-05-06 08:10 | Observation (INO) | payer OTHER ==
[~2022-05-06] VITALS: Ht 170 cm; Wt 138.5 kg
[~2022-05-06 08:10] MED LIST changes: +ONDA4TAB11 PO; +PROM25TA14 PO; +paxlovid PO
[2022-05-06] MEDS ORDERED: morphine INJ 10 MG/ML 1ML (SYR OR VIAL) IVP STA ×2 (08:35→11:27)
--- NOTE | 2022-05-06 08:39 | ED Abdominal Pain ---
General Chief Complaint: Abdominal/GI Problems Stated Complaint: ABD PAIN Nursing Triage Note: PT CO OF ABD PAIN SINCE THIS AM, R LOWER ABD PAIN 9/10 W NAUSEA. STATES HAD NORMAL BM THIS AM. [facility] Source of Information: Patient Exam Limitations: No Limitations History of Present Illness Date Seen by Provider: May 06, 2022 Time Seen by Provider: 08:30 Initial Comments Patient is a 41-year-old female who presents to the emergency department today with a chief complaint of mid abdominal pain onset at awakening this morning, she has never had a pain like this before. She states it was just below the umbilicus and seemed to migrate down into the right pelvis/right lower quadrant. She has had significant nausea. Rating the pain at a "9" out of 10. She had a normal bowel movement today, nonblack nonbloody. No dysuria, urgency or frequency. No abnormal vaginal discharge. She is not sexually active. She has had 3 prior C-sections. Her last delivery was 4 years ago. She had bilateral salpingectomy at that time. She denies fever but feels "hot". Movement and the car ride made her pain significantly worse. She feels much better sitting forward in the bed. She has not taken anything for the pain. All other review of systems reviewed and negative except as stated. Timing/Duration: 1-3 Hours Severity/Quality: Severe, Aching Location: RLQ Radiation: Periumbilical Associated Symptoms: Nausea/Vomiting (nausea without vomiting) Allergies and Home Medications Allergies Coded Allergies: latex (Verified Allergy, Unknown, 12/19/15) Swelling penicillin G (Verified Allergy, Unknown, Pt has received Ancef w/o issue, 07/25/18) tramadol (Verified Adverse Reaction, Unknown, nausea, vomiting, hives, 05/06/22) Patient Home Medication List Home Medication List Reviewed: Yes Acetaminophen (Tylenol Extra Strength) 500 Mg Tablet, 500-1,000 MG PO Q8H PRN for PAIN-MILD (1-4), (Reported) Entered as Reported by: CARLOS LAYTON on 05/06/221511 Last Action: Reviewed Multivitamin (Vitamins For Hair) 400 Mcg-400 Mcg Tablet, 1 EACH PO DAILY, (Reported) Entered as Reported by: CARLOS LAYTON on 05/06/221511 Last Action: Reviewed Discontinued Medications Docusate Sodium (Docusate Sodium) 100 Mg Capsule, 100 MG PO BID PRN for CONSTIPATION-1ST LINE Discontinued Reason: No Longer Taking Prescribed by: FREDDY GERARD on 07/26/18832 Last Action: Discontinued Hydrocodone Bit/Acetaminophen (Lortab 5 Mg Tablet) 1 Tab Tab, 1 TAB PO Q4H PRN for PAIN-MODERATE Discontinued Reason: No Longer Taking Prescribed by: FREDDY GERARD on 07/26/18832 Last Action: Discontinued Ibuprofen (Ibu) 600 Mg Tablet, 600 MG PO Q6H Discontinued Reason: No Longer Taking Prescribed by: FREDDY GERARD on 07/26/18832 Last Action: Discontinued Ondansetron (Ondansetron Odt) 4 Mg Tab.rapdis, 4-8 MG PO Q6H PRN for NAUSEA/VO MITING Discontinued Reason: No Longer Taking Prescribed by: FABI MAYA on 08/17/2120 Last Action: Discontinued Vit W-Ca,Fe,FA(<1 mg) ( Vitamins) 1 Each Tablet, 1 EACH PO DAILY, (Reported) Discontinued Reason: No Longer Taking Entered as Reported by: FUENTES HUBBARD on 08/19/152111 Last Action: Discontinued Promethazine HCl (Promethazine Tablet) 25 Mg Tablet, 25 MG PO Q6H PRN for NAUSEA/VOMITING Discontinued Reason: No Longer Taking Prescribed by: FABI MAYA on 08/17/21 1017 Last Action: Discontinued [paxlovid] , 300 MG PO Discontinued Reason: No Longer Taking Prescribed by: FABI MAYA on 08/17/21 0917 Last Action: Discontinued Review of Systems Review of Systems Constitutional: see HPI EENTM: No Symptoms Reported Respiratory: No Symptoms Reported, Cough (chronic cough due to smoking) Cardiovascular: No Symptoms Reported Gastrointestinal: Abdominal Pain, Nausea Genitourinary: No Symptoms Reported Musculoskeletal: no symptoms reported Skin: no symptoms reported Psychiatric/Neurological: No Symptoms Reported All Other Systems Reviewed Negative Unless Noted: Yes Past Dotebps-Mtpdig-Ntlgvj Hx Patient Social History Tobacco Use?: Yes Tobacco type used: Cigarettes Smoking Status: Current Someday Smoker Substance use?: No Alcohol Use?: No Immunizations Up To Date Tetanus Booster (TDap): Unknown PED Vaccines UTD: Yes Seasonal Allergies Seasonal Allergies: No Past Medical History Surgery/Hospitalization HX: C-SECTIONS Surgeries: Yes (c/s x2) Section Respiratory: No Cardiac: No Neurological: No Reproductive Disorders: No Female Reproductive Disorders: Denies 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 Sexually Transmitted Disease: Yes HIV/AIDS: No Genitourinary: No Gastrointestinal: No Musculoskeletal: No Endocrine: No HEENT: No Cancer: No Psychosocial: No Integumentary: Yes Eczema Blood Disorders: No Adverse Reaction/Blood Tranf: No Family Medical History Alcoholism grandparents Alzheimer's disease grandparents Cardiovascular disease 19 FATHER Completed stroke 19 MOTHER Diabetes mellitus 19 MOTHER grandparents Drug abuse grandparents FH: cancer grandparents (breast, bladder) Hypertension 19 FATHER 19 MOTHER grandparents Myocardial infarction 19 FATHER 19 MOTHER grandparents Ovarian cancer Physical Exam Vital Signs Vital Signs - First Documented 05/06/22 08:15 Temp 36.7 Pulse 102 Resp 20 B/P (MAP) 128/105 (113) Pulse Ox 98 Capillary Refill : Less Than 3 Seconds Height/Weight/BMI Height: 5'6.00" Weight: 284lbs. 0.2oz. 128.068813ys; 47.00 BMI Method:Stated General Appearance: WD/WN, mild distress HEENT: PERRL/EOMI Neck: full range of motion, normal inspection Respiratory: lungs clear, normal breath sounds, no respiratory distress, no accessory muscle use Cardiovascular: regular rate, rhythm Gastrointestinal: soft, abnormal bowel sounds (hypoactive), guarding, rebound, tenderness, other (Obese) Extremities: non-tender, normal inspection, no pedal edema, no calf tenderness Neurologic/Psychiatric: no motor/sensory deficits, alert, normal mood/affect, oriented x 3 Skin: normal color, diaphoresis Progress/Results/Core Measures Results/Orders Lab Results Laboratory Tests Test 05/06/22 08:20 05/06/22 09:22 Range/Units White Blood Count 9.5 4.3-11.0 10^3/uL Red Blood Count 4.62 3.80-5.11 10^6/uL Hemoglobin 12.9 11.5-16.0 g/dL Hematocrit 40 35-52 % Mean Corpuscular Volume 86 80-99 fL Mean Corpuscular Hemoglobin 28 25-34 pg Mean Corpuscular Hemoglobin Concent 32 32-36 g/dL Red Cell Distribution Width 14.1 10.0-14.5 % Platelet Count 375 130-400 10^3/uL Mean Platelet Volume 9.0 9.0-12.2 fL Immature Granulocyte % (Auto) 1 % Neutrophils (%) (Auto) 68 42-75 % Lymphocytes (%) (Auto) 24 12-44 % Monocytes (%) (Auto) 5 0-12 % Eosinophils (%) (Auto) 2 0-10 % Basophils (%) (Auto) 0 0-10 % Neutrophils # (Auto) 6.5 1.8-7.8 10^3/uL Lymphocytes # (Auto) 2.3 1.0-4.0 10^3/uL Monocytes # (Auto) 0.5 0.0-1.0 10^3/uL Eosinophils # (Auto) 0.2 0.0-0.3 10^3/uL Basophils # (Auto) 0.0 0.0-0.1 10^3/uL Immature Granulocyte # (Auto) 0.1 0.0-0.1 10^3/uL Sodium Level 142 135-145 MMOL/L Potassium Level 4.4 3.6-5.0 MMOL/L Chloride Level 107 98-107 MMOL/L Carbon Dioxide Level 23 21-32 MMOL/L Anion Gap 12 5-14 MMOL/L Blood Urea Nitrogen 13 7-18 MG/DL Creatinine 0.87 0.60-1.30 MG/DL Estimat Glomerular Filtration Rate 87 BUN/Creatinine Ratio 15 Glucose Level 103 70-105 MG/DL Calcium Level 9.2 8.5-10.1 MG/DL Corrected Calcium 9.0 8.5-10.1 MG/DL Total Bilirubin 0.3 0.1-1.0 MG/DL Aspartate Amino Transf (AST/SGOT) 15 5-34 U/L Alanine Aminotransferase (ALT/SGPT) 22 0-55 U/L Alkaline Phosphatase 60 40-136 U/L Total Protein 7.9 6.4-8.2 GM/DL Albumin 4.2 3.2-4.5 GM/DL Urine Color YELLOW Urine Clarity CLOUDY Urine pH 6.0 5-9 Urine Specific [place] 1.025 H 1.016-1.022 Urine Protein NEGATIVE NEGATIVE Urine Glucose (UA) NEGATIVE NEGATIVE Urine Ketones NEGATIVE NEGATIVE Urine Nitrite NEGATIVE NEGATIVE Urine Bilirubin NEGATIVE NEGATIVE Urine Urobilinogen 0.2 < = 1.0 MG/DL Urine Leukocyte Esterase NEGATIVE NEGATIVE Urine RBC (Auto) NEGATIVE NEGATIVE Urine RBC RARE /HPF Urine WBC RARE /HPF Urine Squamous Epithelial Cells 5-10 /HPF Urine Crystals PRESENT H /LPF Urine Amorphous Sediment RARE GLENNY URATES H /LPF Urine Bacteria NEGATIVE /HPF Urine Casts NONE /LPF Urine Mucus NEGATIVE /LPF Urine Culture Indicated NO My Orders Orders - ANGELA PATRICIA MD Ed Iv/Invasive Line Start (05/06/22 08:35) Cbc With Automated Diff (05/06/22 08:35) Comprehensive Metabolic Panel (05/06/22 08:35) Urine Bedside (05/06/22 08:35) Ns Iv 1000 Ml (Sodium Chloride 0.9%) (05/06/22 08:45) Morphine Injection (Morphine Injection (05/06/22 08:35) Ondansetron Injection (Zofran Injectio (05/06/22 08:45) Ct Abd/Pelv W (Appendicitis) (05/06/22 08:39) Iohexol Injection (Omnipaque 350 Mg/Ml 1 (05/06/22 09:00) Received Contrast (Hold Metformin- Contr (05/06/22 09:00) Ns (Ivpb) (Sodium Chloride 0.9% Ivpb Bag (05/06/22 09:00) Sodium Chloride Flush (Catheter Flush Sy (05/06/22 09:00) Ua Culture If Indicated (05/06/22 09:15) Us Non Ob Pelvis Comp/Transvag (05/06/22 09:45) Morphine Injection (Morphine Injection (05/06/22 11:27) Ketorolac Injection (Toradol Injection) (05/06/22 12:45) Promethazine Injection (Phenergan Injec (05/06/22 12:45) Ns Iv 500 Ml (Sodium Chloride 0.9%) (05/06/22 12:45) Medications Given in ED Vital Signs/I&O 05/06/22 08:15 Temp 36.7 Pulse 102 Resp 20 B/P (MAP) 128/105 (113) Pulse Ox 98 05/07/22 00:00 Intake Total 500 ml Balance 500 ml Blood Pressure Mean: 113 Progress Progress Note : Time: 13:32 Progress Note Case discussed with Dr. Gerard at approximately 1230. He states that secondary to no free fluid in the pelvis, no large ovarian cysts no fluid around the right ovary he does not suspect ovarian torsion. He states that he can be available for consultation should Dr. SANTAMARIA needed. I called and spoke with Dr. SANTAMARIA at 1330. He advised admit the patient observation with IV fluids and as needed pain medications. He will examine her later this afternoon. Patient was reexamined just prior to talking to Dr. Gerard. She remains quite tender in the right lower quadrant although it is improved after morphine and Toradol. She requested more nausea medication. She does prefer still to sit forward in a "hunched over" position. Diagnostic Imaging Diagonstic Imaging: CT Comments NAME: ZAK DREW [facility] REC#: [id number] PT STATUS: REG ER : 1980 PHYSICIAN: ANGELA PATRICIA MD ADMIT DATE: 05/06/22/ER Draft Date of Exam:05/06/22 CT ABD/PELV W (APPENDICITIS) PROCEDURE: CT abdomen and pelvis with contrast, rule out appendicitis. TECHNIQUE: Multiple contiguous axial images were obtained through the abdomen and pelvis after the administration of intravenous contrast. All CT scans use one or more of the following dose optimizing techniques: automated exposure control, MA and/or KvP adjustment based on patient size and exam type or iterative reconstruction. INDICATION: Right lower quadrant abdominal pain. COMPARISON: None FINDINGS: Included portions of the lung bases are clear. CT ABDOMEN: Normal appendix is identified. Small bowel loops are nondistended. The kidneys, adrenal glands, spleen, pancreas, and liver have an unremarkable CT appearance. There is no loculated fluid collection, free fluid or free air within the abdomen. No abnormal mesenteric or retroperitoneal adenopathy is seen. Osseous structures show no acute abnormalities. CT PELVIS: Fat-containing infraumbilical ventral hernia is identified midline. Ostia measures 2 cm in diameter. Urinary bladder is unopacified and nondistended. No calculi are seen within the urinary bladder. There is no loculated fluid collection, free fluid or free air in the pelvis. No abnormal adenopathy is seen. Osseous structures show no acute abnormalities. IMPRESSION: 1. No acute abnormalities seen within the abdomen or pelvis. Dictated on workstation # [id number] Dict: 05/06/22 0904 Trans: 05/06/22 0911 CVB [id number] Interpreted by: FOUZIA ASHFORD MD Electronically signed by: Departure Communication (Admissions) Time/Spoke to Admitting Phy: 13:[address] Santamaria; admit, IVF, pain medications Time/Spoke to Consulting Phy: 12:[address] Gerard Impression Primary Impression: Abdominal pain Qualified Codes: R10.31 - Right lower quadrant pain Disposition: ADMITTED INPATIENT Condition: Stable Admissions Decision to Admit Reason: Admit from ER (General) Decision to Admit/Date: May 06, 2022 Time/Decision to Admit Time: 13:35 Departure-Patient Inst. Referrals: [facility] (PCP/Family) Primary Care Physician ANGELA PATRICIA MD May 06, 2022 08:39
[2022-05-06 08:41] LABS: BASOPHILS % (AUTO) 0 % (0-10); EOSINOPHILS # (AUTO) 0.2 10^3/uL (0.0-0.3); EOSINOPHILS % (AUTO) 2 % (0-10); HEMATOCRIT 40 % (35-52); HEMOGLOBIN 12.9 g/dL (11.5-16.0); LYMPHOCYTES # (AUTO) 2.3 10^3/uL (1.0-4.0); LYMPHOCYTES % (AUTO) 24 % (12-44); MEAN CORPUSCULAR HEMOGLOBIN 28 pg (25-34); MEAN CORPUSCULAR HGB CONC 32 g/dL (32-36); MEAN CORPUSCULAR VOLUME 86 fL (80-99); MONOCYTES # (AUTO) 0.5 10^3/uL (0.0-1.0); MONOCYTES % (AUTO) 5 % (0-12); NEUTROPHILS # (AUTO) 6.5 10^3/uL (1.8-7.8); NEUTROPHILS % (AUTO) 68 % (42-75); PLATELET COUNT 375 10^3/uL (130-400); WHITE BLOOD COUNT 9.5 10^3/uL (4.3-11.0)
[2022-05-06 08:43] LABS: ALBUMIN 4.2 GM/DL (3.2-4.5); POTASSIUM 4.4 MMOL/L (3.6-5.0)
[2022-05-06 08:45] LABS: CALCIUM 9.2 MG/DL (8.5-10.1)
[2022-05-06] MEDS ORDERED: ONDANSETRON 4 MG/2 ML (SDV) Z0FRAN IVP ONE (08:45)
[2022-05-06] MEDS ORDERED: NS IV 1000 ML 1,000 ML IV SCH (08:45)
[2022-05-06 08:46] LABS: TOTAL PROTEIN 7.9 GM/DL (6.4-8.2)
[2022-05-06 08:48] LABS: BILIRUBIN,TOTAL 0.3 MG/DL (0.1-1.0)
[2022-05-06 08:49] LABS: CREATININE SERUM 0.87 MG/DL (0.60-1.30)
[2022-05-06] MEDS ORDERED: NS 100 ML (IVPB) BAG IV ONE (09:00)
[2022-05-06] MEDS ORDERED: HOLD METFORMIN - RECEIVED CONTRAST 20 ML VIAL IV SCH (09:00)
[2022-05-06] MEDS ORDERED: CATHETER FLUSH 10 ML SYR IV PRN (09:00)
[2022-05-06] MEDS ORDERED: IOHEXOL 350 MG/ML 100 ML (OMNIPAQUE 350) VIAL IV ONE (09:00)
--- NOTE | 2022-05-06 09:11 | Diagnostic Imaging Report ---
PROCEDURE: CT abdomen and pelvis with contrast, rule out appendicitis. TECHNIQUE: Multiple contiguous axial images were obtained through the abdomen and pelvis after the administration of intravenous contrast. All CT scans use one or more of the following dose optimizing techniques: automated exposure control, MA and/or KvP adjustment based on patient size and exam type or iterative reconstruction. INDICATION: Right lower quadrant abdominal pain. COMPARISON: None FINDINGS: Included portions of the lung bases are clear. CT ABDOMEN: Normal appendix is identified. Small bowel loops are nondistended. The kidneys, adrenal glands, spleen, pancreas, and liver have an unremarkable CT appearance. There is no loculated fluid collection, free fluid or free air within the abdomen. No abnormal mesenteric or retroperitoneal adenopathy is seen. Osseous structures show no acute abnormalities. CT PELVIS: Fat-containing infraumbilical ventral hernia is identified midline. Ostia measures 2 cm in diameter. Urinary bladder is unopacified and nondistended. No calculi are seen within the urinary bladder. There is no loculated fluid collection, free fluid or free air in the pelvis. No abnormal adenopathy is seen. Osseous structures show no acute abnormalities. IMPRESSION: 1. No acute abnormalities seen within the abdomen or pelvis. Dictated by: Dictated on workstation # [id number]
[2022-05-06 09:26] LABS: BILIRUBIN,URINE NEGATIVE (NEGATIVE); CLARITY,URINE CLOUDY; COLOR,URINE YELLOW; GLUCOSE, URINE (UA) NEGATIVE (NEGATIVE); KETONES,URINE NEGATIVE (NEGATIVE); LEUKOCYTE ESTERASE ,URINE NEGATIVE (NEGATIVE); NITRITE,URINE NEGATIVE (NEGATIVE); PROTEIN,URINE NEGATIVE (NEGATIVE)
[2022-05-06 09:31] LABS: AMORPHOUS SEDIMENT,UR RARE AMOR URATES /LPF; BACTERIA,URINE NEGATIVE /HPF; RBC,URINE RARE /HPF; WBC,URINE RARE /HPF
--- NOTE | 2022-05-06 12:06 | Diagnostic Imaging Report ---
PROCEDURE: Pelvic comp/transvaginal sonogram. TECHNIQUE: Complete transabdominal and transvaginal pelvic ultrasound was performed. In addition, limited pelvic Doppler was performed. INDICATION: Severe right lower quadrant pain. Uterus is anteverted measuring 9.9 x 4.2 x 5.8 cm. Endometrium is 8 mm in thickness. No myometrial mass is detected. There appears to be a cervical nabothian cyst present. Left ovary was not visualized. Right ovary measures 2.9 x 2.6 x 2.3 cm. There are some follicles in the right ovary. There was difficulty obtaining blood flow in the right ovary. No adnexal mass or free fluid is detected. IMPRESSION: 1. Nonvisualized left ovary. Right ovary has fairly a normal morphologic appearance but there was difficulty obtaining blood flow in the right ovary. Clinical correlation for the possibility of ovarian torsion would be recommended, as this cannot be entirely excluded. No other abnormalities are seen. Dictated by: Dictated on workstation # [id number]
[2022-05-06] MEDS ORDERED: KETOROLAC 30 MG/ML VIAL IVP ONE (12:45)
[2022-05-06] MEDS ORDERED: NS IV 500 ML 500 ML IV ONE (12:45)
[2022-05-06] MEDS ORDERED: PROMETHAZINE INJ 25 MG/ML (PHENERGAN) AMP IVP ONE (12:45)
[2022-05-06 14:29] VITALS: BP 112/58
[2022-05-06] MEDS ORDERED: PROMETHAZINE INJ 25 MG/ML (PHENERGAN) AMP IVP PRN (14:30)
[2022-05-06] MEDS: LACTATED RINGERS 1,000 ML IV SCH ×2 (14:42→21:11)
[2022-05-06] MEDS ORDERED: morphine INJ 10 MG/ML 1ML (SYR OR VIAL) IVP PRN (15:00)
[2022-05-06] MEDS ORDERED: ACET-2267 PO (15:12)
[2022-05-06] MEDS ORDERED: MULT-577 PO (15:12)
[2022-05-06 15:30] VITALS: BP 95/52
[2022-05-06] MEDS: HYDROcodone/APAP 7.5 MG/325 MG (LORTAB, LORCET PLUS) TABLET PO PRN ×2 (17:58→23:05)
[2022-05-06 19:38] VITALS: BP 105/52
[2022-05-06] MEDS ORDERED: ONDANSETRON 4 MG/2 ML (SDV) Z0FRAN IVP PRN (20:15)
[2022-05-06] MEDS ORDERED: KETOROLAC 30 MG/ML VIAL IVP PRN (20:15)
[2022-05-06] MEDS ORDERED: fentaNYL INJ 100 MCG/2 ML AMP ONE (20:56)
[2022-05-06] MEDS: fentaNYL INJ 100 MCG/2 ML AMP IVP PRN (20:59)
[2022-05-06 23:00] VITALS: BP 111/56
[2022-05-07] MEDS: fentaNYL INJ 100 MCG/2 ML AMP IVP PRN ×2 (01:30→05:51)
[2022-05-07 03:54] VITALS: BP 103/51
[2022-05-07 05:28] LABS: BASOPHILS % (AUTO) 0 % (0-10); EOSINOPHILS # (AUTO) 0.2 10^3/uL (0.0-0.3); EOSINOPHILS % (AUTO) 3 % (0-10); HEMATOCRIT 34 % (35-52); HEMOGLOBIN 10.6 g/dL (11.5-16.0); LYMPHOCYTES # (AUTO) 3.2 10^3/uL (1.0-4.0); LYMPHOCYTES % (AUTO) 37 % (12-44); MEAN CORPUSCULAR HEMOGLOBIN 28 pg (25-34); MEAN CORPUSCULAR HGB CONC 32 g/dL (32-36); MEAN CORPUSCULAR VOLUME 88 fL (80-99); MEAN PLATELET VOLUME 9.2 fL (9.0-12.2); MONOCYTES # (AUTO) 0.4 10^3/uL (0.0-1.0); MONOCYTES % (AUTO) 5 % (0-12); NEUTROPHILS # (AUTO) 4.7 10^3/uL (1.8-7.8); NEUTROPHILS % (AUTO) 55 % (42-75); PLATELET COUNT 293 10^3/uL (130-400); WHITE BLOOD COUNT 8.6 10^3/uL (4.3-11.0)
[2022-05-07] MEDS: LACTATED RINGERS 1,000 ML IV SCH (05:52)
[2022-05-07 07:40] VITALS: BP 116/75
[2022-05-07] MEDS: HYDROcodone/APAP 7.5 MG/325 MG (LORTAB, LORCET PLUS) TABLET PO PRN (08:38)
[2022-05-07] MEDS ORDERED: HYDR-3817 PO (09:49)
--- NOTE | 2022-05-07 09:58 | Discharge Inst-Surgical ---
D/C Lap Instructions-KIDO New, Converted, or Re-Newed RX: RX on Chart Follow Up with [facility](Dr. Cha, Dr. Castro)Appt in 2 weeks Activity as tolerated No driving for 24 hours No driving while on pain medications Incentive Spirometry use every 2 hours while awake Regular Diet Symptoms to Report: Fever over 101 degree F, Nausea/Vomiting Infection Signs and Symptoms to report: Increased redness, Foul odor of wound, Increased drainage Bathing instructions: May shower Operative Area Clean/Dry; Keep incision clean/dry If any problems/questions: Contact your physician or go to Emergency Room KEVIN CANDELARIA MD May 07, 2022 09:58
--- NOTE | 2022-05-07 10:27 | HISTORY AND PHYSICAL ---
DATE OF SERVICE: ATTENDING PRIMARY CIRCULATION MANAGER: [facility]. INDICATION FOR PROCEDURE: The patient is a 41-year-old female, who presented to the Emergency Department with periumbilical as well as lower quadrant abdominal pain. She reports that this had started early in the morning while doing some activity and persisted. She states that she had a bowel movement; however, this did not make it any better. She did undergo a CT scan, which did not show any intraperitoneal inflammatory changes, only omentum containing infraumbilical hernia. Upon examination, she is tender in that region; however, the hernia is reducible. She is also able to eat and again have normal bowel function. PAST MEDICAL HISTORY: None. PAST SURGERIES: section x3 and tubal ligation. ALLERGIES: LATEX, PENICILLIN, and TRAMADOL. MEDICATIONS: Colace daily. SOCIAL HISTORY: Positive smoke 20 pack years. Negative alcohol. FAMILY HISTORY: Both maternal and paternal grandmothers with breast cancer. Both mother and father, myocardial infarction at around age 50. REVIEW OF SYSTEMS: This is a well-nourished female in no acute distress. She is not experiencing any shortness of breath or difficulty in breathing. No chest pain, palpitations, diaphoresis. No nausea, vomiting, no diarrhea or constipation. No red blood per rectum and no dark tarry stools. No fever, chills, no recent inadvertent weight loss. All other review of systems negative. PHYSICAL EXAMINATION: VITAL SIGNS: Temperature 36.1, blood pressure 116/75, pulse 69, respirations 18, pulse ox 95% on room air. CHEST: Clear. Good breath sounds bilaterally. HEART: Regular and no murmurs. EXTREMITIES: No lower extremity edema and negative Homans sign. HEENT: No scleral icterus and no cervical lymphadenopathy. ABDOMEN: Soft and nondistended. The hernia is palpable. She does have a significant amount of subcutaneous adipose tissue. Upon gentle pressure, the hernia is reducible. SKIN: Warm and dry. LABORATORY DATA: WBC 8.6, hemoglobin 10.6, hematocrit 34, platelets 293, BUN 13, and creatinine 0.87. ASSESSMENT AND PLAN: A 41-year-old female with symptomatic reducible infraumbilical hernia. The natural history of hernias was explained to the patient as well as the potential risks and benefits of the surgery and nonsurgical care. It was explained to her that this will likely need to be repaired or it will increase in size and become more symptomatic. She also needs to reduce the risk factors, which would greatly increase the risk of recurrence, which include weight loss and decrease her body mass index as well as smoking cessation, which impedes wound healing. For now, we will recommend that she wear an abdominal binder and to refrain from heavy lifting and exertion. She reports that she does not have any insurance and we will refer her back to [facility] for referral to [facility]. Job ID: [id number] DocumentID: [id number] Dictated Date: 05/07/2022 10:07:37 Tractor Trailer Operator Date: 05/07/2022 10:26:45 Dictated By: KEVIN CANDELARIA MD
[2022-05-07 10:49] VITALS: BP 116/75
== END 2022-05-07 09:49 | disposition home or self-care (01) ==
LOC: EDUNIT# 08:10 → ER 08:12 → 4TH 13:30 → UNDOADMOB 13:30 → 4TH 14:16 → UNDODISOB 05-07 09:49
PROVIDERS: ADMIT Surgery; ATTEND Surgery
DX: K42.9 Umbilical hernia without obstruction or gangrene (principal); F17.210 Nicotine dependence, cigarettes, uncomplicated
CPT/HCPCS: 74177; 76830; 76856; 80053; 81000; 84703; 85025 ×2; 96361 ×3; 96374; 96375 ×2; 96376 ×3; 99284; G0378; 36415

== ENCOUNTER 2022-10-03 15:06 | Emergency (ER) | payer BC ==
[~2022-10-03] VITALS: Ht 170 cm; Wt 130.0 kg
[~2022-10-03 15:06] MED LIST changes: +ACET-2267 PO; +HYDR-3817 PO; +MULT-577 PO
[2022-10-03] MEDS ORDERED: CLIN-144 PO (15:33)
[2022-10-03] MEDS ORDERED: ACHD5005 PO (15:33)
--- NOTE | 2022-10-03 15:36 | ED EENT ---
History of Present Illness General Chief Complaint: Dental Problems/Pain Stated Complaint: DENTAL PAIN Nursing Triage Note: PT AMB TO FT 2 WITH COMPLAINTS OF RIGHT UPPER DENTAL PAIN THAT SHE HAS HAD FOR SEVERAL YEARS BUT HAS GOTTEN WORSE ON TUESDAY. PT IS EXPERIENCING DIFFICULTY SWALLOWING, EATING, DRINKING, AND N/V. PT STATES THAT SHE HAS NOT BEEN TO THE DENTIST IN SEVERAL YEARS DUE TO NOT HAVING INSURANCE. PT HAS A DENTIST APT October. IBUPROFEN WAS TAKEN AT 1130 TODAY. Source: patient Exam Limitations: no limitations History of Present Illness Date Seen by Provider: Oct 03, 2022 Time Seen by Provider: 15:31 Initial Comments Patient is a 42-year-old female presents ED with right upper dental pain. She has had intermittent pain for the past couple years. History of decay tooth with frequent infections. She states she started having pain this past Tuesday difficulty swallowing, eating and drinking. This became worse over the weekend. Has been taking ibuprofen. She reports some mild purulent drainage from her right upper tooth. she reports some swelling to the right sided upper face. Tolerate secretions. pain radiating to the neck. Denies any fever, vomiting, diarrhea, headache, dizziness. She is scheduled to follow-up with a dentist on October 22. No improvement with ibuprofen. Patient denies of any pain to the floor the mouth, neck swelling or redness. Allergies and Home Medications Allergies Coded Allergies: latex (Verified Allergy, Unknown, 12/19/15) Swelling penicillin G (Verified Allergy, Unknown, Pt has received Ancef w/o issue, 07/25/18) tramadol (Verified Adverse Reaction, Unknown, nausea, vomiting, hives, 05/06/22) Patient Home Medication List Home Medication List Reviewed: Yes Acetaminophen (Tylenol Extra Strength) 500 Mg Tablet, 500-1,000 MG PO Q8H PRN for PAIN-MILD (1-4), (Reported) Entered as Reported by: CARLOS LAYTON on 05/06/22 1512 Clindamycin HCl (Clindamycin HCl) 300 Mg Capsule, 300 MG PO QID Prescribed by: ALEKSANDER LOPEZ on 10/03/22 1533 Hydrocodone/Acetaminophen (Hydrocodone-Acetamin 7.5-325) 7.5 Mg-325 Mg Tablet, 1 EACH PO Q4H Prescribed by: KEVIN CANDELARIA on 05/07/22 0949 Hydrocodone/Acetaminophen (Hydrocodone-Acetamin 5-325 mg) 5 Mg-325 Mg Tablet, 1 TAB PO Q4H PRN for PAIN-MODERATE (5-7) Prescribed by: ALEKSANDER LOPEZ on 10/03/22 1533 Multivitamin (Vitamins For Hair) 400 Mcg-400 Mcg Tablet, 1 EACH PO DAILY, (Reported) Entered as Reported by: CARLOS LAYTON on 05/06/22 1512 Review of Systems Review of Systems Constitutional: No chills, No diaphoresis, No malaise Eyes: Denies Drainage, Denies Decreased Acuity Ears: Denies Dizziness, Denies Bloody Discharge, Denies Clear Discharge Nose: denies clots Mouth: denies loose teeth; pain; denies bloody discharge, denies clear discharge Throat: denies pain, denies swelling Gastrointestinal: No abdominal pain, No diarrhea, No nausea, No vomiting Musculoskeletal: No back pain, No joint pain Skin: No change in color, No change in hair/nails All Other Systems Reviewed Negative Unless Noted: Yes Past Plxsnwr-Fnnbgc-Yvmido Hx Patient Social History Tobacco Use?: Yes Substance use?: No Alcohol Use?: No Immunizations Up To Date Tetanus Booster (TDap): Unknown PED Vaccines UTD: Yes Influenza Vaccine Up-to-Date: Yes; Up-to-Date Seasonal Allergies Seasonal Allergies: No Past Medical History Surgery/Hospitalization HX: C-SECTIONS Surgeries: Yes (c/s x2) Section Respiratory: No Cardiac: No Neurological: No Reproductive Disorders: No Female Reproductive Disorders: Denies 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 Sexually Transmitted Disease: Yes HIV/AIDS: No Genitourinary: No Gastrointestinal: No Musculoskeletal: No Endocrine: No HEENT: No Cancer: No Psychosocial: No Integumentary: Yes Eczema Blood Disorders: No Adverse Reaction/Blood Tranf: No Family Medical History Alcoholism grandparents Alzheimer's disease grandparents Cardiovascular disease 19 FATHER Completed stroke 19 MOTHER Diabetes mellitus 19 MOTHER grandparents Drug abuse grandparents FH: cancer grandparents (breast, bladder) Hypertension 19 FATHER 19 MOTHER grandparents Myocardial infarction 19 FATHER 19 MOTHER grandparents Ovarian cancer Physical Exam Vital Signs Vital Signs - First Documented 10/03/22 15:13 Pulse 88 B/P (MAP) 142/91 (108) Pulse Ox 98 O2 Delivery Room Air Height, Weight, BMI Height: 5'6.00" Weight: 284lbs. 0.2oz. 128.000835ux; 44.00 BMI Method:Stated General Appearance: WD/WN, no apparent distress Eyes: bilateral eye normal inspection, bilateral eye PERRL, bilateral eye EOMI, bilateral eye abnormal EOM Ears: bilateral ear auricle normal, bilateral ear canal normal, bilateral ear TM normal Nose: normal inspection Mouth/Throat: normal mouth inspection, pharynx normal, dental tenderness, other (Decay to right posterior upper molar. No active drainage. No obvious abscess. Gingiva erythema and swelling. 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 Decay noted to the right upper back molar. No obvious abscess. Did offer dental block she refused. Was given dose of oral pain medication. Will discharge with clindamycin. Schedule follow-up with dentist in a few weeks. Recommend ice to help with the swelling. Anti- inflammatories for pain. If any worsening symptoms such as increased redness or swelling, increasing facial pain return back to ED. Tolerating secretions. Denies of any neck pain. Impression Primary Impression: Pain, dental Disposition: HOME, SELF-CARE Condition: Stable Departure-Patient Inst. Decision time for Depature: 15:32 Referrals: [facility] (PCP[facility]Family) Primary Care Physician Patient Instructions: Dental Pain Scripts Hydrocodone/Acetaminophen (Hydrocodone-Acetamin 5-325 mg) 5 Mg-325 Mg Tablet 1 TAB PO Q4H PRN for PAIN-MODERATE (5-7), #10 TAB Prov: CHELSIE DAMON 10/03/22 Clindamycin HCl (Clindamycin HCl) 300 Mg Capsule 300 MG PO QID for 7 Days, #28 CAP Prov: CHELSIE DAMON 10/03/22 CHELSIE DAMON Oct 03, 2022 15:36
[2022-10-03 15:47] VITALS: BP 142/91
== END 2022-10-03 15:47 | disposition home or self-care (01) ==
LOC: EDUNIT# 15:06 → ER 15:09
DX: K08.89 Other specified disorders of teeth and supporting structures (principal); Z88.1 Allergy status to other antibiotic agents; Z28.310 Unvaccinated for COVID-19
CPT/HCPCS: 99283

== ENCOUNTER 2022-12-20 16:13 | Emergency (ER) | payer BC ==
[~2022-12-20] VITALS: Ht 170.2 cm; Wt 129.3 kg
[~2022-12-20 16:13] MED LIST changes: +CLIN-144 PO
[2022-12-20 16:22] VITALS: BP 132/83
[2022-12-20] MEDS ORDERED: TETRACAINE 0.5% OPHTH SOLN 4 ML BTL (SINGLE DOSE ONLY) ONE (16:35)
[2022-12-20] MEDS ORDERED: FLUORESCEIN (FLUOR-I-STRIPS) 1 MG STRP ONE (16:35)
[2022-12-20] MEDS ORDERED: FLUORESCEIN (FLUOR-I-STRIPS) 1 MG STRP OP ONE (16:45)
[2022-12-20] MEDS ORDERED: TETRACAINE 0.5% OPHTH SOLN 5 ML BTL OP ONE (16:45)
[2022-12-20] MEDS ORDERED: POLY10DR OP (16:56)
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
== END 2022-12-20 17:04 | disposition home or self-care (01) ==
LOC: EDUNIT# 16:13 → ER 16:15
DX: H11.32 Conjunctival hemorrhage, left eye (principal); F17.200 Nicotine dependence, unspecified, uncomplicated; Z88.0 Allergy status to penicillin; Z91.040 Latex allergy status
CPT/HCPCS: 99281

== ENCOUNTER 2022-12-22 14:39 | Emergency (ER) | payer BC ==
[~2022-12-22 14:39] MED LIST changes: +POLY10DR OP
[2022-12-22 14:45] VITALS: BP 158/96
[2022-12-22] MEDS ORDERED: CLIN150C20 PO (15:05)
--- NOTE | 2022-12-22 15:06 | ED Integumentary General ---
General Chief Complaint: Breast Complaints Stated Complaint: PAINFUL MASS ON RT BREAST Nursing Triage Note: PT CO OF BREAST PAIN STARTED ON TUESDAY, PT HAS ABCESS THAT SHE STATES HAS HAD ON AND OFF FOR APPROX 6 YEARS. PT CO OF PAIN OF 05/17 Source: patient Exam Limitations: no limitations History of Present Illness Date Seen by Provider: December 22, 2022 Time Seen by Provider: 14:53 Initial Comments Patient presents for right breast redness, inflammation and pain. Symptoms off and on for 6 years. It happens infrequently, maybe twice a year but typically has gotten better in the past but time alone. Couple times she has had to have antibiotics. She states it is happening frequently enough that is caused her nipple to be inverted. At the outset she had an ultrasound that showed an inflamed milk duct. She has not had more recent imaging. She has never had a mammogram. All other systems reviewed and negative except documented per HPI. Voice recognition software was used to help create this chart Allergies and Home Medications Allergies Coded Allergies: latex (Verified Allergy, Unknown, 12/19/15) Swelling penicillin G (Verified Allergy, Unknown, Pt has received Ancef w/o issue, 07/25/18) tramadol (Verified Adverse Reaction, Unknown, nausea, vomiting, hives, 05/06/22) Patient Home Medication List Home Medication List Reviewed: Yes Acetaminophen (Tylenol Extra Strength) 500 Mg Tablet, 500-1,000 MG PO Q8H PRN for PAIN-MILD (1-4), (Reported) Entered as Reported by: CARLOS LAYTON on 05/06/22 1512 Clindamycin HCl (Clindamycin HCl) 300 Mg Capsule, 300 MG PO QID Prescribed by: ALEKSANDER LOPEZ on 10/03/22 1533 Hydrocodone/Acetaminophen (Hydrocodone-Acetamin 7.5-325) 7.5 Mg-325 Mg Tablet, 1 EACH PO Q4H Prescribed by: KEVIN CANDELARIA on 05/07/22 0949 Hydrocodone/Acetaminophen (Hydrocodone-Acetamin 5-325 mg) 5 Mg-325 Mg Tablet, 1 TAB PO Q4H PRN for PAIN-MODERATE (5-7) Prescribed by: ALEKSANDER LOPEZ on 10/03/22 1533 Multivitamin (Vitamins For Hair) 400 Mcg-400 Mcg Tablet, 1 EACH PO DAILY, (Reported) Entered as Reported by: CARLOS LAYTON on 05/06/22 1512 Polymyxin B Sulf/Trimethoprim (Polytrim Eye Drops) 10,000 Unit-1 Mg/Ml Drops, 1 DROP OP Q4H Prescribed by: ALEKSANDER LOPEZ on 12/20/22 1656 Review of Systems Review of Systems Constitutional: see HPI Past Njdztti-Dchnoq-Uscbwr Hx Patient Social History Tobacco Use?: Yes Smoking Status: Current Everyday Smoker Substance use?: No Alcohol Use?: Yes Alcohol type: Hard Liquor Alcohol Frequency: Rarely Pt feels they are or have been: No Immunizations Up To Date Tetanus Booster (TDap): Unknown PED Vaccines UTD: Yes Seasonal Allergies Seasonal Allergies: No Past Medical History Surgery/Hospitalization HX: C-SECTIONS Surgeries: Yes (c/s x2) Section Respiratory: No Cardiac: No Neurological: No Reproductive Disorders: No Female 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 Sexually Transmitted Disease: Yes HIV/AIDS: No Genitourinary: No Gastrointestinal: No Musculoskeletal: No Endocrine: No HEENT: No Cancer: No Psychosocial: No Integumentary: Yes Eczema Blood Disorders: No Adverse Reaction/Blood Tranf: No Family Medical History Alcoholism grandparents Alzheimer's disease grandparents Cardiovascular disease 19 FATHER Completed stroke 19 MOTHER Diabetes mellitus 19 MOTHER grandparents Drug abuse grandparents FH: cancer grandparents (breast, bladder) Hypertension 19 FATHER 19 MOTHER grandparents Myocardial infarction 19 FATHER 19 MOTHER grandparents Ovarian cancer Physical Exam Vital Signs Vital Signs - First Documented 12/22/22 14:45 Temp 36.8 Pulse 89 Resp 18 B/P (MAP) 158/96 (116) Pulse Ox 98 Capillary Refill : Less Than 3 Seconds General Appearance: WD/WN, no apparent distress Neck: full range of motion Cardiovascular: regular rate, rhythm, no murmur Respiratory: chest non-tender, lungs clear, normal breath sounds Skin: other (Right breast the inferior portion of the breast is an area of edema, induration and erythema. There is a central papule. No fluctuance. The nipple on the side is inverted. No lymphadenopathy.) Progress/Results/Core Measures Results/Orders Vital Signs/I&O 12/22/22 14:45 Temp 36.8 Pulse 89 Resp 18 B/P (MAP) 158/96 (116) Pulse Ox 98 Blood Pressure Mean: 116 Departure Communication (Admissions) Patient is hemodynamically stable. No fluctuance or drainage. Did advise that this may be cancerous however appears more infectious at this time. Did re commend mammography after this clears up. Also reported to general surgery for further evaluation. Impression Primary Impression: Mastitis of right breast unrelated to of Disposition: HOME, SELF-CARE Condition: Stable Departure-Patient Inst. Referrals: [facility] [place] (PCP/Family) Primary Care Physician NIKO STOVALL DO Patient Instructions: Mastitis Add. Discharge Instructions: Take the antibiotics as prescribed until they are gone. I recommend you follow- up with your primary doctor to schedule a mammogram. I have given you the name of a general surgeon who should be able to evaluate you for possible surgical options as well. Return to the emergency department for any severe concerns, fevers or if your symptoms change in any way concerning to you. All discharge instructions reviewed with patient and/or family. Voiced understanding. Scripts Clindamycin HCl (Clindamycin HCl) 150 Mg Capsule 300 MG PO TID for 10 Days, #60 CAP Prov: MARCO CHRISTINA DO 12/22/22 MARCO CHRISTINA DO December 22, 2022 15:06
[2022-12-22] MEDS ORDERED: ACHD5005 PO (15:18)
== END 2022-12-22 15:24 | disposition home or self-care (01) ==
LOC: EDUNIT# 14:39 → ER 14:42
DX: N61.0 Mastitis without abscess (principal); F17.200 Nicotine dependence, unspecified, uncomplicated; Z88.0 Allergy status to penicillin; Z91.040 Latex allergy status
CPT/HCPCS: 99282

== ENCOUNTER → 2023-01-26 | Outpatient (CLI) | payer BC ==
[~2023-01-26] MED LIST changes: +CLIN150C20 PO
--- NOTE | 2023-01-26 14:27 | Diagnostic Imaging Report ---
INDICATION: Right breast lump. Patient has prior history of right breast infection. COMPARISON: Correlation is made with the diagnostic mammogram from earlier this same day as well as prior right breast ultrasound from 12/02/2015. FINDINGS: Sonographic interrogation of the area of lump in the medial right breast was performed. There is an irregular area of hypoechogenicity just below the skin surface, just medial to the nipple. This area measures 2.9 x 0.6 x 3.7 cm. There is some associated vascularity. This has improved when compared with the examination from 2016. This may represent an area of scarring or phlegmon. No discrete fluid collection is identified. IMPRESSION: Slightly irregular region of hypoechogenicity at the area of palpable abnormality in the medial right breast. Overall, this area has improved since the prior ultrasound from 2016 and may represent scarring versus residual phlegmon. No discrete drainable fluid collection is identified at this time. Continued followup to confirm stability/clearing would be recommended. ACR BI-RADS Category 3: Probably benign findings. Dictated by: Dictated on workstation # [id number]
--- NOTE | 2023-01-26 14:30 | Diagnostic Imaging Report ---
Indication: Palpable lump right breast. Patient's prior history of right breast infection. No prior studies are available for comparison. 2-D and 3-D bilateral diagnostic mammography was performed with CAD. BB marker was placed at the area palpable abnormality in the medial right breast. The current study was also evaluated with a Computer Aided Detection (CAD) system. There is an area density in the retroareolar medial right breast, near the area palpable abnormality. No other abnormal densities are seen. There are no malignant-appearing microcalcifications. Left breast is unremarkable. Axillae are unremarkable. IMPRESSION: BI-RADS 0 There is some density in the medial retroareolar right breast, reportedly near the region of the patient's prior infection. Further evaluation of this area with ultrasound is recommended and will be performed today. ACR BI-RADS Category 0: Incomplete. (Needs additional imaging evaluation). Result letter will be mailed to the patient. Note: At least 10% of breast cancer is not imaged by mammography. Dictated by: Dictated on workstation # [id number]
== END ==
LOC: RAD 12:34
PROVIDERS: ATTEND Surgery
DX: N63.10 Unspecified lump in the right breast, unspecified quadrant (principal)
CPT/HCPCS: 76642; 77066; G0279; 77062

== ENCOUNTER 2023-02-02 05:42 | Outpatient (CLI) | payer BC ==
[~2023-02-02] VITALS: Ht 170.1 cm; Wt 139.6 kg
[2023-02-02] MEDS ORDERED: IBUP-1780 PO (13:04)
== END 2023-02-02 13:23 | disposition home or self-care (01) ==
LOC: PREOP 05:42
PROVIDERS: ATTEND Surgery
DX: Z01.818 Encounter for other preprocedural examination (principal); N61.1 Abscess of the breast and nipple

== ENCOUNTER 2023-02-09 06:54 | Day surgery (SDC) | payer BC ==
[~2023-02-09] VITALS: Ht 170.2 cm; Wt 139.6 kg
[2023-02-09] VITALS (12 sets, daily range): BP systolic 92–144; BP diastolic 53–85
[2023-02-09] MEDS ORDERED: BUP/EPI 0.25% 1:200,000 (MARCAINE) 30 ML VIAL ONE (07:18)
[2023-02-09] MEDS ORDERED: CLINDAMYCIN 600 MG/50 ML IVPB 50 ML IV ONE ×2 (07:37→08:00)
[2023-02-09] MEDS ORDERED: proPOfol 200 MG/20 ML (DIPRIVAN) VIAL IV ONE (07:40)
[2023-02-09] MEDS ORDERED: SEVOFLURANE (ULTANE) 15 ML INHAL SOLN ONE ×2 (07:40→08:50)
[2023-02-09] MEDS ORDERED: LIDOCAINE PF 2% 5 ML (XYLOCAINE) VIAL ONE (07:40)
[2023-02-09] MEDS ORDERED: ONDANSETRON 4 MG/2 ML (SDV) Z0FRAN ONE (07:40)
[2023-02-09] MEDS ORDERED: fentaNYL INJ 100 MCG/2 ML AMP ONE (07:40)
[2023-02-09] MEDS ORDERED: MIDAZOLAM 2 MG/2 ML (VERSED) VIAL ONE (07:40)
[2023-02-09] MEDS ORDERED: LACTATED RINGERS 1,000 ML IV PRN (08:00)
--- NOTE | 2023-02-09 08:24 | Progress Note-Pre Operative ---
Pre-Operative Progress Note Date of Available H&P: Feb 01, 2023 Date H&P Reviewed: Feb 09, 2023 Time H&P Reviewed: 08:11 History & Physical: H&P Reviewed, Patient Examed, No changes noted Pre-Operative Diagnosis: Right breast abscess, site marked ELIEL KULKARNI DO Feb 09, 2023 08:24
[2023-02-09] MEDS ORDERED: ACHD5005 PO (08:57)
--- NOTE | 2023-02-09 08:57 | Progress Note-Post Operative ---
Post-Operative Progess Note Surgeon (s)/Personnel Security Assistant (s) Surgeon ELIEL KULKARNI DO Personnel Security Assistant: none Pre-Operative Diagnosis Right breast abscess, site marked Post-Operative Diagnosis Right breast mass Right breast abscess Procedure & Operative Findings Date of Procedure 02/09/23 Procedure Performed/Findings Excision of right breast mass I&D right breast with packing Anesthesia Type LMA Estimated Blood Loss Estimated blood loss (mL): scant Specimens/Packing Specimens Removed right breast mass and tissue ELIEL KULKARNI DO Feb 09, 2023 08:57
--- NOTE | 2023-02-09 08:59 | Discharge Inst-Surgical ---
Discharge Inst-Surgical Depart Medication/Instructions New, Converted or Re-Newed RX: Transmitted to Pharmacy Patient Instructions Follow up Appt: Make appointment for 1 week. [phone] Instructions: No lifting greater than 20 pounds. No strenuous activity. May shower in 24 hours, no tub bath or soaking. Use incentive spirometer at home as directed. No Smoking Skin/Wound Care: May remove bandages in am. You need to change packing daily. Symptoms to Report: Appetite Changes, Extremity Discoloration, Numbness/Tingling, Swelling Increased, Bleeding Excessive, Eyesight Changes, Pain Increased, Urine Color Change, Constipation(Persistent), Fever over 101 degree F, Pain/Pressure in chest, Urinating Difficulty, Cough Up/Vomit Blood, Heart Beat Irreg/Pounding, Pain/Pressure in jaw, Cramps in feet or legs, Lightheadedness, Pain/Pressure in shoulder, Diarrhea(Persistent), Memory Changes Suddenly, Questions/Concerns, Weight gain consecutive days, Dizziness/Fainting, Nausea/Vomiting, Shortness of Breath, Weight gain over 2 pounds If questions or concerns contact your physician Or seek help at emergency department. Activity Activity as Tolerated: Yes Driving Instructions: No Driving/Refer to Dr. Gill Discharge Diet: No Restrictions Diet After 24 Hours: Clear Liquid if Nauseous If Any Problems/Questions/Issu: Contact Your Physician, Go to Emergency Room Skin/Wound Care Infection Signs and Symptoms: Increased Redness, Foul Odor of Wound, Increased Drainage, Skin Itchy or Has a Rash, Increased Swelling, Temperature Above 101 F Bathing Instructions: ELIEL Wolf DO Feb 09, 2023 08:59
[2023-02-09] MEDS ORDERED: ONDANSETRON 4 MG/2 ML (SDV) Z0FRAN IVP PRN (09:00)
[2023-02-09] MEDS ORDERED: fentaNYL INJ 100 MCG/2 ML AMP IVP ONE (09:00)
--- NOTE | 2023-02-09 09:00 | Anesthesia-General Post-Op ---
General Patient Condition Mental Status/LOC: Same as Preop Cardiovascular: Satisfactory Nausea/Vomiting: Absent Respiratory: Satisfactory Pain: Controlled Complications: Absent Post Op Complications Complications None Follow Up Care/Instructions Patient Instructions None needed. Anesthesia/Patient Condition Patient Condition Patient is doing well, no complaints, stable vital signs, no apparent adverse anesthesia problems. No complications reported per nursing. AZIZA RIVERA CRNA Feb 09, 2023 09:00
[2023-02-09] MEDS ORDERED: HYDROcodone/APAP 5 MG/325 MG (LORTAB) TAB ONE (10:14)
[2023-02-09] MEDS ORDERED: HYDROcodone/APAP 5 MG/325 MG (LORTAB) TAB PO ONE (10:15)
--- NOTE | 2023-02-09 21:15 | OPERATIVE REPORT ---
DATE OF SERVICE: 02/09/2023 PREOPERATIVE DIAGNOSIS: Right breast abscess with questionable mass. POSTOPERATIVE DIAGNOSIS: Right breast abscess and mass. PROCEDURES: 1. Excision of breast mass. 2. Incision and drainage of right breast with packing. SURGEON: J Luis Castro DO KENO DEALER: None. ANESTHESIA: LMA. SPECIMENS: Right breast mass and tissue. BLOOD LOSS: Less than 10 mL FLUIDS: Per anesthesia. POSTOPERATIVE CONDITION: Stable. INDICATIONS FOR PROCEDURE: The patient is a 42-year-old female who has an area on her right breast. It has been draining, feel like a mass, confirmed with ultrasound, but category, I believe, 3, continues to drain and bother her, sometimes breast get swollen, sometimes it goes down. FINDINGS: The patient had a right breast mass and what looked like possibly an epidermal inclusion cyst. It was actually pulling and inverting the nipple. PROCEDURE NOTE: After informed consent was obtained. the patient was brought to the operating room and placed on the table in the supine position. She was sterilely prepped and draped in normal fashion. The site had been marked preoperatively and everyone agreed on this. At about 4-5 o'clock position just outside the areola, there was a scab where it had drained from, elected to infiltrate around this area along the areola and then outside as a regional block, then elected to make an elliptical incision to excise this portion, did this with a #15 blade, carried down through the skin into subcutaneous tissue, then deepened down to subcutaneous tissue. Bovie electrocautery starting to kind of track inferiorly. I did not find any abscess cavity or necrotic tissue, but going under the areola towards the nipple, there was a mass and then as I was pulling on this, I could see was tugging on the nipple and then I encountered what looked to be a sebaceous cyst type material, removed this en bloc. Two incisions of this mass to open up what we thought was an abscess cavity. This was passed off the table, copiously irrigated with normal saline. Hemostasis was obtained and then elected to pack this area with 1/4-inch iodoform packing. Area was then cleaned and dried dressing placed. The patient tolerated the procedure. Sponge and needle count correct at the end of the case. She was transferred to recovery room in stable condition. Job ID: [id number] DocumentID: [id number] Dictated Date: 02/09/2023 13:44:49 Exterior Door Installer Date: 02/09/2023 21:13:00 Dictated By: J LUIS CASTRO DO
== END 2023-02-09 11:20 | disposition home or self-care (01) ==
LOC: SDC 06:54
PROVIDERS: ATTEND Surgery
DX: N61.0 Mastitis without abscess (principal); N63.10 Unspecified lump in the right breast, unspecified quadrant; K21.9 Gastro-esophageal reflux disease without esophagitis; E66.01 Morbid (severe) obesity due to excess calories; F17.210 Nicotine dependence, cigarettes, uncomplicated; Z28.310 Unvaccinated for COVID-19; Z68.42 Body mass index [BMI] 45.0-49.9, adult
CPT/HCPCS: 84703; 87081